=== PATIENT | female | born 1980 | race Caucasian/White ===

== ENCOUNTER 2018-02-02 13:13 | Outpatient (CLI) | payer MEDICAID, SELFPAY ==
--- NOTE | 2018-02-02 06:00 | DI.RAD_ITS ---
SYMPTOMS/DIAGNOSIS: LUMBAR RADICULOPATHY PAIN CLINIC LUMBAR SPINE: Fluoroscopy Time: 14.2 sec Images submitted from the Pain Clinic demonstrate needle positioning over the left paramedian position at the level of S1 with injection of a small quantity of contrast material in conjunction with a transforaminal epidural steroid injection carried out by Dr. Sue. Please see the procedure report for further information.
[2018-02-02 13:26] VITALS: BP 123/79; PULSE 100; RESP 16; TEMP 36.6; O2SAT 100
--- NOTE | 2018-02-02 14:04 | PDOC.PAIN ---
Pain Clinic Procedure Note Current Active Problems Problem Status Onset Left lumbar radiculitis Acute LUMBAR / SACRAL TRANSFORAMINAL INJECTION at the LEFT S1 KATRIN VILLATORO has been referred to the [facility] for a transforaminal nerve root block and steroid injection. COMMENTS: She received 8+ months relief from the last Left S1 TFESI in April 2017. Patient was interviewed and the medical record reviewed. There were no medical, pharmacologic, radiographic or other structural contraindications to attempting fluoroscopically guided transforaminal nerve root block and epidural steroid injection. Risks and expected side effects as well as potential benefit of the procedure were reviewed and voiced concerns addressed. The printed consent form was signed and witnessed. Standard time-out procedure was performed. Patient was placed in the prone position on the fluoroscopy table and automated blood pressure cuff and pulse oximeter applied. Fluoroscopy was utilized to identify the left at the [id number] foramen . A skin elvis was made for the needle insertion site. A Chlorhexadine prep was carried out, and sterile drapes were applied. Local anesthesia was achieved in the skin and subcutaneous tissues. A 22 gauge curved tip 5 spinal needle was then inserted, advanced with fluoroscopic guidance into the neural foramen, confirmed on the lateral view. After negative aspiration, 2 ml of Omnipaque 240 was injected confirming position in A/P and lateral views. This showed a good spread of dye transforaminally into the epidural space. There was no vascular update with contrast injection under continuous fluoroscopy and digital substraction. 15 mg of Dexamethasone was injected, followed by 0.5 ml of 1% Xylocaine flush for the nerve root block, as well. There was no unusual discomfort expressed.The needle was withdrawn. The patient tolerated the procedure well. A Band-Aid was applied. Vital signs were stable throughout the procedure and were as recorded in nursing records. If given, dosages of intravenous drugs for anxiolysis and analgesia were documented in nursing records. Follow up plans and appointments were discussed. Post procedure instruction was given as documented in nursing records and patient was discharged in the care of an identified rolloff driver. COMMENTS: If this procedure gives her relief, she can have this procedure completed up to 3 times per 12 months. Edmond Sue DO, MPH ABP[facility] - Subspecialty Board Certification in Pain Medicine CC: Zulma Dey
--- NOTE | 2018-02-02 14:07 | PDOC.PAIN_ITS ---
Pain Clinic Procedure Note Current Active Problems Problem Status Onset Left lumbar radiculitis Acute LUMBAR / SACRAL TRANSFORAMINAL INJECTION at the LEFT S1 KATRIN VILLATORO has been referred to the [facility] for a transforaminal nerve root block and steroid injection. COMMENTS: She received 8+ months relief from the last Left S1 TFESI in April 2017. Patient was interviewed and the medical record reviewed. There were no medical , pharmacologic, radiographic or other structural contraindications to attempting fluoroscopically guided transforaminal nerve root block and epidural steroid injection. Risks and expected side effects as well as potential benefit of the procedure were reviewed and voiced concerns addressed. The printed consent form was signed and witnessed. Standard time-out procedure was performed. Patient was placed in the prone position on the fluoroscopy table and automated blood pressure cuff and pulse oximeter applied. Fluoroscopy was utilized to identify the left at the [id number] foramen . A skin elvis was made for the needle insertion site. A Chlorhexadine prep was carried out, and sterile drapes were applied. Local anesthesia was achieved in the skin and subcutaneous tissues. A 22 gauge curved tip 5 spinal needle was then inserted , advanced with fluoroscopic guidance into the neural foramen, confirmed on the lateral view. After negative aspiration, 2 ml of Omnipaque 240 was injected confirming position in A/P and lateral views. This showed a good spread of dye transforaminally into the epidural space. There was no vascular update with contrast injection under continuous fluoroscopy and digital substraction. 15 mg of Dexamethasone was injected, followed by 0.5 ml of 1% Xylocaine flush for the nerve root block, as well. There was no unusual discomfort expressed.The needle was withdrawn. The patient tolerated the procedure well. A Band-Aid was applied. Vital signs were stable throughout the procedure and were as recorded in nursing records. If given, dosages of intravenous drugs for anxiolysis and analgesia were documented in nursing records. Follow up plans and appointments were discussed. Post procedure instruction was given as documented in nursing records and patient was discharged in the care of an identified driver starting gate. COMMENTS: If this procedure gives her relief, she can have this procedure completed up to 3 times per 12 months. Edmond Sue DO, MPH ABP[facility] - Subspecialty Board Certification in Pain Medicine CC: Zulma Dey
[2018-02-02] MEDS: Dexamethasone Sod. Phos./Pres-Free 10 MG/ML VIAL IJ (14:12)
[2018-02-02] MEDS: Omnipaque 240 MG/ML 50 ML BTL IJ (14:13)
[2018-02-02 14:16] VITALS: PULSE 96; RESP 13; O2SAT 98
== END 2018-02-02 13:33 ==
PROVIDERS: PCP Nurse Practitioner; Visit Provider Preventive Medicine Occupational Medicine
DX: M54.16 Radiculopathy, lumbar region (principal)
CPT/HCPCS: 64483; 72100; Q9967

== ENCOUNTER 2018-02-04 17:42 | Emergency (ER) | payer MEDICAID, SELFPAY ==
[2018-02-04 17:48] VITALS: BP 108/71; PULSE 95; RESP 16; TEMP 36.5; O2SAT 98
[2018-02-04] MEDS: Acetaminophen 500 MG TAB 1000 MG PO (18:43)
[2018-02-04] MEDS: Methocarbamol 500 MG TAB PO (18:43)
[2018-02-04] MEDS: Ketorolac 30 MG/ML VIAL IM (18:44)
[2018-02-04] MEDS: Lidocaine 5% Patch 1 PATCH TP (18:50)
--- NOTE | 2018-02-04 19:20 | NUR.NOTE ---
Nursing Note: pt in room, lying on side facing wall, resting comfortably in dark room with family member at bedside.
[2018-02-04] MEDS: HYDROmorphone 2 MG/ML VIAL 1 MG IM (20:14)
[2018-02-04 20:22] VITALS: PULSE 68; RESP 19; O2SAT 96
--- NOTE | 2018-02-04 20:37 | W.ED.GENAD ---
Discharge Plan Disposition Patient Disposition: HOME Condition: Good Discharge Details Chief Complaint: Nk/Back Pain Clinical Impression: Left lumbar radiculitis Primary Care Provider: Zulma Dey ED Provider: Panda Ordaz Home Meds and New Rx's Prescriptions: New diazepam [Valium] 5 mg tablet 5 mg PO BID Qty: 6 RF: 0 No Action methocarbamol 500 MG tablet See Label Instructions .ROUTE .COMPLEX PRNRF: 0 duloxetine [Cymbalta] 60 MG capsule,delayed release(DR/EC) 2 cap PO DAILY RF: 0 losartan 50 MG tablet 50 mg PO DAILY RF: 0 acetaminophen [Pain Reliever Extra Strength] 500 MG tablet 1,000 mg PO RF: 0 ibuprofen [Advil] 200 MG tablet 600 mg PO TID PRN PRNRF: 0 spironolactone 50 MG tablet 100 mg PO DAILY RF: 0 gabapentin 300 mg Capsule 900 mg PO TID RF: 0 glycopyrrolate 2 mg Tablet 2 mg PO DAILY RF: 0 eflornithine [Vaniqa] 13.9 % Cream 1 applic TOPICAL BID RF: 0 omeprazole 40 mg Capsule,Delayed Release(Dr/Ec) 40 mg PO DAILY RF: 0 lisdexamfetamine [Vyvanse] 70 mg Capsule 70 mg PO QAM RF: 0 aluminum chloride [Drysol] 20 % Solution 1 DAILY RF: 0 dextroamphetamine-amphetamine [Adderall] 20 mg Tablet 20 mg PO DAILY PRNRF: 0 Discharge Instructions Instructions: Back Pain (ED) Additional Instructions: Please continue to take your home medications. Please avoid any heavy lifting greater than 10 pounds. Please follow-up with your pain clinic as soon as possible for reassessment. If you notice any numbness or tingling in your groin, weakness in your legs, bowel or bladder incontinence, vomiting, or diarrhea please return immediately. Referrals: Zulma Dey [Primary Care Provider] - Discharge Data Discharge Date/Time-TO BE ENTERED AT DEPARTURE: 02/04/18 21:06 Medical Decision Making This is a 37-year-old female with a past medical history of chronic back pain who does see a pain clinic, she had injections on which was 2-3 days ago, since then she has had mild improvement of her pain but no complete improvement. She did take her home [place], Robax[place], however she called the on-call physician for the pain clinic and is unwilling to prescribe Dilaudid and Valium. She came here for further evaluation and pain control. She denies any new change or alteration in her chronic pain syndrome, just slight worsening of her normal pain. It is not changed in nature. She denies any saddle anesthesia. No red flags on history of IV drug use, recent trauma, or systemic symptoms of fever or chills. Physical exam demonstrates chronic tenderness on her lower spine, no neurologic deficits, no saddle anesthesia. Patient was initially given Lidoderm patch, she refused Decadron, she was given Toradol, acetaminophen, Robaxin, and Valium. She had minimal improvement with this. Patient then did request more pain medication. We did give intramuscular Dilaudid, and within 1 minute the patient stated that she is feeling much better and was ready to go home. I do feel that the patient certainly has chronic back pain issues, however I am concerned that there may be a component of opiate withdrawal, secondary to chronic previous use of opiates. Thankfully with no signs of concerning physical exam findings or concerning historical components I do feel that she can be safely discharged home with close follow-up. We discussed red flags for which to return, the importance of avoiding opiates, as well as the importance of close follow-up with a pain clinic. I have extensively reviewed the treatment plan and discharge instructions with the patient and their family. I have addressed all patient concerns at this time. The patient and family was made aware of what symptoms to monitor for that would warrant a return to the emergency department. Discussed the plan with the patient and family, they demonstrate verbal understanding and agreement with our assessment and plan at this time. HPI General Date/Time Provider Initiated Documentation: 02/04/18 18:17. HPI Narrative: This is a 37-year-old female with a past medical history of a laminectomy in 2011 on L3-L5 who used to be on Dilaudid, Valium, Robaxin, but had recently stopped these and has been getting injections at the local pain clinic. Most recent injection was on . She had some improvement of her chronic back pain with that, however she states that she is still having some moderate to severe left buttock pain. She was given steroids, injections, and Tylenol Motrin at home. She states that there is no new change in her symptoms compared to her chronic back pain. She denies any bowel or bladder incontinence, she denies any saddle anesthesia. She denies any recent falls, traumas or systemic symptoms of fevers or chills. She denies any IV or illicit drug use. She states that she did call the on-call physician for the pain clinic he was not comfortable giving her oral Dilaudid and Valium for home use for her pain, and so she came to the ER for further evaluation. She denies any relieving factors. Symptoms are made worse with movement. She denies any other associated symptoms. She denies any IV or illicit drug use. She denies any pertinent family history. Related Data Home Medications Medication Instructions Recorded Confirmed duloxetine [Cymbalta] 2 cap PO DAILY 03/19/15 02/04/18 spironolactone 100 mg PO DAILY 04/23/17 02/04/18 acetaminophen [Pain Reliever] 1,000 mg PO 04/26/17 ibuprofen [Advil] 600 mg PO TID PRN PRN 04/26/17 02/04/18 losartan 50 mg PO DAILY 04/26/17 02/04/18 methocarbamol See Label Instructions .ROUTE 05/19/17 02/04/18 .COMPLEX PRN aluminum chloride [Drysol] 1 DAILY 02/02/18 dextroamphetamine-amphetamine 20 mg PO DAILY PRN 02/02/18 02/04/18 [Adderall] eflornithine [Vaniqa] 1 applic TOPICAL BID 02/02/18 02/04/18 gabapentin 900 mg PO TID 02/02/18 02/04/18 glycopyrrolate 2 mg PO DAILY 02/02/18 02/04/18 lisdexamfetamine [Vyvanse] 70 mg PO QAM 02/02/18 02/04/18 omeprazole 40 mg PO DAILY 02/02/18 02/04/18 diazepam [Valium] 5 mg PO BID #6 tab 02/04/18 Previous Rx's Medication Instructions Recorded diazepam [Valium] 5 mg PO BID #6 tab 02/04/18 Allergies Allergy/AdvReac Type Severity Reaction Status Date / Time codeine AdvReac Mild Hyper Unverified 02/04/18 17:52 General Stated Complaint: Nk/Back Pain CARMEL: 3 Review of Systems Review of Systems All systems reviewed & are unremarkable except as noted in HPI and below PFSH Medical History Back pain Depression Fatigue HTN (hypertension) Hirsutism Lactose intolerance Lumbar radiculopathy Malaise Migraines Obesity Sleep apnea Snoring Social History Smoking/Tobacco Use Status: Current-Occasional Surgical History discectomy laminectomy Exam Narrative Exam Narrative: 1.Const: Well-nourished, Well-developed, appearing stated age 2.Eyes: PERRL, no conjunctival injection, and symmetrical lids. 3.ENT: Atraumatic external nose and ears. Moist MM. Neck: Symmetric, trachea midline, No thyromegaly. 4.CVS: +S1/S2, No murmurs or gallops. Peripheral pulses 2+ and equal in all extremities. Brisk capillary refill in all extremities. 5.RESP: Unlabored respiratory effort. Clear to auscultation bilaterally. No wheezes rales or rhonchi 6.GI: Soft, Nontender/Nondistended, No hepatosplenomegaly. No guarding or rebound. 7.MSK: Normocephalic/Atraumatic, Extremities w/o deformity or ttp No cyanosis or clubbing, Normal movement of all extremities 8.Skin: Warm, Dry. No rashes or lesions. 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 Sensation grossly intact, no focal neurologic deficits. No midline tenderness to palpation over the C/T spine. Slightly limited ROM in flexion, extension, side bend, and rotation secondary to pain. Old scar noted over the lumbar vertebra, mild tenderness around this area. Patient has +5 out of 5 strength in the lower extremities in dorsiflexion and plantarflexion, knee flexion and extension, hip flexion and extension. There is +2 over 2 dorsalis pedis pulses bilaterally. There is normal sensation to the skin with light touch at the foot, knee, and hip. Normal saddle sensation. Good sensation over the deep sural nerve area bilaterally. Rectal exam deferred. Reflexes are +2 over 4 in the patellar reflex bilaterally. +5 out of 5 strength in the medial, ulnar, radial nerve distribution bilaterally in the hands as well as intact light touch sensation to these dermatomes on the hands. It is worsened with straight leg raise on the left. No other abnormalities. 10.Psych: (AAO) x3. Appropriate mood and affect Course Vital Signs Temperature 36.5 C 02/04/18 17:48 Pulse 95 H 02/04/18 17:48 Respiratory Rate 16 02/04/18 17:48 Blood Pressure 108/71 02/04/18 17:48 Pulse Oximetry 98 02/04/18 17:48 Temperature 36.5 C 02/04/18 17:48 Temperature Source Skin 02/04/18 17:48 Pulse 68 02/04/18 20:22 Respiratory Rate 19 02/04/18 20:22 Respiratory Effort Non-Labored 02/04/18 17:51 Blood Pressure 108/71 02/04/18 17:48 Pulse Oximetry 96 02/04/18 20:22 Oxygen Delivery Method Room Air 02/04/18 20:22 Oxygen Flow Rate 0 02/04/18 20:22 Pain Level 7 02/04/18 18:45
[2018-02-04 21:04] VITALS: BP 124/87; PULSE 76; RESP 16; O2SAT 97
== END 2018-02-04 21:06 | disposition home or self-care (01) ==
PROVIDERS: Emergency Provider Student in an Organized Health Care Education/Training Program; PCP Nurse Practitioner
DX: M54.16 Radiculopathy, lumbar region (principal)
CPT/HCPCS: 96372; 99284; J1885

== ENCOUNTER 2018-02-06 10:08 | Emergency (ER) | payer MEDICAID, SELFPAY ==
[2018-02-06 10:12] VITALS: BP 132/78; PULSE 78; RESP 20; TEMP 37.1; O2SAT 97
[2018-02-06] MEDS: HYDROmorphone 2 MG/ML VIAL 1 MG IM (10:58)
[2018-02-06 11:30] VITALS: BP 115/80; PULSE 80; RESP 18; TEMP 36.7; O2SAT 99
--- NOTE | 2018-02-06 11:36 | ED.GENADUL_ITS ---
Discharge Plan Disposition Patient Disposition: HOME Condition: Stable Discharge Details Chief Complaint: Nk/Back Pain Clinical Impression: Acute exacerbation of chronic low back pain, Left lumbar radiculitis Primary Care Provider: Zulma Dey ED Provider: Orville Carver Home Meds and New Rx's Prescriptions: No Action prednisone 10 mg tablet 10 mg PO DIRECTED 5 Days Qty: 20 RF: 0 methocarbamol 500 MG tablet See Label Instructions .ROUTE .COMPLEX PRNRF: 0 duloxetine [Cymbalta] 60 MG capsule,delayed release(DR/EC) 2 cap PO DAILY RF: 0 losartan 50 MG tablet 50 mg PO DAILY RF: 0 acetaminophen [Pain Reliever Extra Strength] 500 MG tablet 1,000 mg PO RF: 0 ibuprofen [Advil] 200 MG tablet 600 mg PO TID PRN PRNRF: 0 spironolactone 50 MG tablet 100 mg PO DAILY RF: 0 gabapentin 300 mg Capsule 900 mg PO TID RF: 0 glycopyrrolate 2 mg Tablet 2 mg PO DAILY RF: 0 eflornithine [Vaniqa] 13.9 % Cream 1 applic TOPICAL BID RF: 0 omeprazole 40 mg Capsule,Delayed Release(Dr/Ec) 40 mg PO DAILY RF: 0 lisdexamfetamine [Vyvanse] 70 mg Capsule 70 mg PO QAM RF: 0 aluminum chloride [Drysol] 20 % Solution 1 DAILY RF: 0 dextroamphetamine-amphetamine [Adderall] 20 mg Tablet 20 mg PO DAILY PRNRF: 0 diazepam [Valium] 5 mg tablet 5 mg PO BID Qty: 6 RF: 0 Discharge Instructions Instructions: Chronic Back Pain (ED) Additional Instructions: Please keep your appointment with pain management clinic for today at noon and if you begin developing a fever with your back pain, saddle anesthesia, or changes in bowel or bladder function return immediately to the emergency department for reassessment of emergency back pain. Otherwise take your prescribed medication as directed by primary care provider. Referrals: Vesta Marrero [NURSE PRACTITIONER] - (Follow-up with your primary care provider for reassessment or chronic management of your back pain. ) Discharge Data Discharge Date/Time-TO BE ENTERED AT DEPARTURE: 02/06/18 11:29 Medical Decision Making Patient presenting to the emergency department for chief complaint of back pain. Patient states that in 2011 she had back surgery and she continues to have back pain after her surgical procedure with acute flareups. Patient started having a flareup approximately a week ago and was seen by primary care last week. She states that they wrote for her for hydrocodone which has not been effective, seen the pain clinic the next day with injection for back pain, then presented to the emergency department 2 days ago with minimal relief until she received Dilaudid. Patient states in the past she has been given p.o. Dilaudid for these acute flareups. Patient denies any fever chills, IV drug use , saddle anesthesia, inability to move lower extremities, or changes in bowel or bladder function. Physical exam shows left lower lumbar diffuse tenderness and sciatic notch tenderness without any other acute findings. Physical exam is otherwise unremarkable. When discussing with patient that there is been 4 visits in less than 1 week and scripts for both opiates and benzodiazepine patient became very defensive. Informed patient that I was willing to treat her acute back pain with a single IM injection of Dilaudid since that helped previously but that for any further pain complaints that she would need to follow-up with primary care. Patient continued to be defensive and stated that I was accusing her of being a drug addict. I attempted to inform patient of concerning pattern that could lead potentially to addiction and that I felt that her pain needed to be managed by her primary care provider given chronicity. Informed patient pending IM injection that I would contact her primary care provider for any further recommendations. Spoke with Vesta Sarabia whom patient states that she has seen in the past. She stated that she is aware of the patient but has not recently prescribed her any Dilaudid per her recollection and would not recommend any further opiate prescriptions. Informed patient of conversation with primary care and that primary care recommended that she follow-up with their office. Patient then informed me that she did have a follow-up appoint with pain clinic at noon. Patient was very upset about the entire interaction even when I attempted to educate patient on emergency signs of back pain which I do not see any signs of cauda equina, epidural abscess, or severe radiculopathy that needs MRI imaging or emergent follow-up. Patient was also informed to contact her previous neurosurgeon which she states she did attempt to last week and they were not willing to do anything for her patient discharged with family member to go straight to pain clinic for appointment. Patient did state some relief of symptoms after IM hydromorphone injection. Medical Records Medical records reviewed: Yes I reviewed the patient's medical records. HPI General Mode of arrival: ambulatory . Date/Time Provider Initiated Documentation: 02/06/18 10:19 . Limitations to Documentation: no limitations . Information obtained by: patient, RN notes reviewed and old records reviewed . History of Present Illness 37 year old F presents to the emergency department with the chief complaint of Back pain, with intensity rated at 9. Quality is described as sharp and constant, and is localized to the back. Patient distal (left leg). Patient started experiencing this week(s) (1) and it has been constant. Medication improves symptom(s), (Dilaudid injection 2 days ago provided mild brief improvement) Patient did receive the following treatments prior to arrival, none Related Data Home Medications Medication Instructions Recorded Confirmed duloxetine [Cymbalta] 2 cap PO DAILY 03/19/15 02/06/18 spironolactone 100 mg PO DAILY 04/23/17 02/06/18 acetaminophen [Pain Reliever] 1,000 mg PO 04/26/17 02/06/18 ibuprofen [Advil] 600 mg PO TID PRN PRN 04/26/17 02/06/18 losartan 50 mg PO DAILY 04/26/17 02/06/18 methocarbamol See Label Instructions .ROUTE 05/19/17 02/06/18 .COMPLEX PRN aluminum chloride [Drysol] 1 DAILY 02/02/18 02/06/18 dextroamphetamine-amphetamine 20 mg PO DAILY PRN 02/02/18 02/06/18 [Adderall] eflornithine [Vaniqa] 1 applic TOPICAL BID 02/02/18 02/06/18 gabapentin 900 mg PO TID 02/02/18 02/06/18 glycopyrrolate 2 mg PO DAILY 02/02/18 02/06/18 lisdexamfetamine [Vyvanse] 70 mg PO QAM 02/02/18 02/06/18 omeprazole 40 mg PO DAILY 02/02/18 02/06/18 diazepam [Valium] 5 mg PO BID #6 tab 02/04/18 02/06/18 prednisone 10 mg tablet 10 mg PO DIRECTED 5 Days #20 tab 02/06/18 02/06/18 Previous Rx's Medication Instructions Recorded diazepam [Valium] 5 mg PO BID #6 tab 02/04/18 prednisone 10 mg tablet 10 mg PO DIRECTED 5 Days #20 tab 02/06/18 Allergies Allergy/AdvReac Type Severity Reaction Status Date / Time codeine AdvReac Mild Hyper Unverified 02/06/18 11:55 General Stated Complaint: Nk/Back Pain CARMEL: 3 Review of Systems Constitutional Denies chills, Denies fever(s), Denies frequent falls and Denies night sweats Cardiovascular Denies chest pain and Denies dyspnea Respiratory Denies dyspnea Gastrointestinal Denies change in bowel habits Genitourinary Denies urinary frequency, Denies difficulty voiding and Denies urinary incontinence Musculoskeletal Reports as per HPI, Reports back pain, Denies numbness and Reports radiating pain into limb Neurologic Denies frequent falls and Denies numbness PFSH Medical History Back pain Depression Fatigue HTN (hypertension) Hirsutism Lactose intolerance Lumbar radiculopathy Malaise Migraines Obesity Sleep apnea Snoring Social History Smoking/Tobacco Use Status: Current-Occasional Surgical History discectomy laminectomy Exam Const General: cooperative, acute distress severe; not respiratory, anxious and not ill appearing Nutritional Appearance: overweight Orientation: alert, awake and oriented x3 Limitations: mental status not altered Resp Effort & Inspection: normal respiratory effort and able to speak in complete sentences Auscultation: clear to auscultation bilaterally Cardio Rate: regular rate Rhythm: regular rhythm Heart Sounds: S1 normal and S2 normal Back/Spine/Pelvis Thoracic/Lumbar Spine: pain with thoraco-lumbar ROM, paraspinal tenderness, No thoraco-lumbar spasm, No thoracic spinal tenderness, lumbar spinal tenderness ( Diffuse nonfocal) and other (Left sciatic notch tenderness, tenderness to buttock) Extrem General: full ROM Course Vital Signs Temperature 37.1 C 02/06/18 10:12 Pulse 78 02/06/18 10:12 Respiratory Rate 20 02/06/18 10:12 Blood Pressure 132/78 02/06/18 10:12 Pulse Oximetry 97 02/06/18 10:12 Temperature 37.1 C 02/06/18 10:12 Temperature Source Temporal Artery Scan 02/06/18 10:12 Pulse 78 02/06/18 10:12 Respiratory Rate 20 10/22/18 10:12 Respiratory Effort 02/06/18 10:17 Blood Pressure 132/78 02/06/18 10:12 Blood Pressure Position Sitting 02/06/18 10:12 Pulse Oximetry 97 02/06/18 10:12 Oxygen Delivery Method Room Air 02/06/18 10:12 Oxygen Flow Rate 0 02/06/18 10:12 Pain Level 9 02/06/18 10:12
== END 2018-02-06 11:29 | disposition home or self-care (01) ==
PROVIDERS: Emergency Provider Nurse Practitioner Family; PCP Nurse Practitioner
DX: M54.5 Low back pain (principal); G89.29 Other chronic pain; M54.16 Radiculopathy, lumbar region; I10 Essential (primary) hypertension
CPT/HCPCS: 96372; 99284; 99283

== ENCOUNTER 2018-02-23 15:04 | Outpatient (CLI) | payer MEDICAID, SELFPAY ==
--- NOTE | 2018-02-23 11:00 | DI.MRI_ITS ---
SYMPTOMS/DIAGNOSIS: ACUTE LOW BACK PAIN, M54.6, BACK PAIN WITH RADICULOPATHY, M54.16, CHRONIC INCREASING LOW BACK PAIN, LEFT LEG SYMPTOMS, DROP FOOT ON LEFT MRI OF THE LUMBAR SPINE: Routine noncontrast examination. Comparison is 12/15/15. The conus medullaris has a normal appearance and location. At L5-S1, there is a moderate-sized left paracentral disc herniation with extrusion posterior to the S1 vertebral body. It compresses the left S1 nerve root. No central spinal canal stenosis is seen. There is mild narrowing of the left neural foramen with mild compression of the exiting nerve root. The right neural foramen is patent. There is disc desiccation present. Degenerative changes at the facets are seen. At L4-L5, there are degenerative changes at the facet joints. There is a moderately large left paracentral disc herniation. It compresses the left L5 nerve root. There is mild narrowing of the central spinal canal noted. There is mild left neural foraminal narrowing. No right neural foraminal stenosis is seen. At L3-L4, there is disc desiccation. There is a diffuse disc bulge. No significant central spinal canal stenosis is seen. There is a small central disc herniation present. There does appear to be compression of the left L4 nerve root. There is narrowing of the neural foramen bilaterally. At L2-L3 and L1-L2, no focal disc herniation, central spinal canal or neural foraminal stenosis is seen. Apart from the degenerative signal changes, there is normal marrow signal. IMPRESSION: 1. Left paracentral disc herniation at L5-S1 compressing the left S1 nerve root. 2. L4-5 left paracentral disc herniation compressing the left L5 nerve root. 3. L3-4 disc herniation with compression of the left L4 nerve root. 4. Multilevel degenerative changes in the lumbar spine resulting in central spinal canal and neural foraminal stenosis as described above.
--- NOTE | 2018-02-23 17:42 | DI.VRAD_ITS ---
EXAM: MR Lumbar Spine Without Intravenous Contrast. EXAM DATE/TIME: 02/23/2018 11:00 AM CLINICAL HISTORY: 37 years old, female; Pain; Other: Lower back pain acute with radioculopathy TECHNIQUE: Multiplanar magnetic resonance images of the lumbar spine without intravenous contrast. . Exam is focused on the lumbar spine. COMPARISON: MRI - LUMBAR SPINE W/WO CONT 12/15/2015 4:47 PM FINDINGS: Vertebrae: No spondylolisthesis. No fracture. Marrow: No abnormal bone marrow signal. Spinal cord: Normal signal. No cord compression. Discs/Spinal canal/Neural foramina: L1-L2: Mild disc bulge. Bilateral facet hypertrophy. No spinal canal stenosis. No neural foramina narrowing. L2-L3: Disc bulge. Bilateral facet hypertrophy. No spinal canal stenosis. No neural foramina narrowing. L3-L4: Disc bulge. There is superimposed central disc protrusion. Moderate spinal canal stenosis. Bilateral facet hypertrophy. Moderate bilateral neural foramina narrowing. The disc is abutting the descending left L4 nerve. L4-L5: Central, left paracentral and left neuroforaminal disc protrusion. Bilateral facet hypertrophy. Moderate to severe spinal canal stenosis. Moderate bilateral neural foramina narrowing. The disc is abutting the descending L5 left nerve. L5-S1: Disc bulge. Bilateral facet hypertrophy. No spinal canal stenosis. Moderate bilateral neural foramina narrowing. Soft tissues: Unremarkable. IMPRESSION: Multilevel degenerative disc disease the neural foramina narrowing. Moderate bilateral neural foramina narrowing at L3-L4, L4-L5 and L5-S1. The disc material is abutting the left L4 descending nerve at L3-L4 and left L5 nerve at L4-L5. Moderate spinal canal stenosis at L3-L4 and moderate to severe at L4-L5. Dictated and Authenticated by: Cristobal Baum MD. Ordering:LAUREN BANGURA MD
== END 2018-02-23 15:24 ==
PROVIDERS: PCP Nurse Practitioner; Visit Provider Nurse Practitioner Family
DX: M54.16 Radiculopathy, lumbar region (principal); M21.372 Foot drop, left foot; M51.17 Intervertebral disc disorders with radiculopathy, lumbosacral region; M48.07 Spinal stenosis, lumbosacral region
CPT/HCPCS: 72148

== ENCOUNTER 2018-05-16 05:09 | Emergency (ER) | payer MEDICAID, SELFPAY ==
[2018-05-16 05:12] VITALS: BP 114/65; PULSE 85; RESP 20; TEMP 36.6; O2SAT 100
--- NOTE | 2018-05-16 05:23 | DI.RAD_ITS ---
SYMPTOM/DIAGNOSIS: LATERAL ANKLE PAIN AFTER INVERSION LEFT ANKLE: There is soft tissue swelling around the lateral malleolus. No fracture or ankle mortise widening is seen. There is spurring at the Achilles insertion on the calcaneus. IMPRESSION: Lateral soft tissue swelling.
--- NOTE | 2018-05-16 05:24 | W.ED.GENAD ---
Discharge Plan Disposition Patient Disposition: HOME Condition: Good Discharge Details Chief Complaint: Orthopedic Clinical Impression: Left ankle sprain Primary Care Provider: Zulma Dey ED Provider: Panda Ordaz Home Meds and New Rx's Prescriptions: No Action duloxetine [Cymbalta] 60 MG capsule,delayed release(DR/EC) 2 cap PO DAILY RF: 0 losartan 50 MG tablet 50 mg PO DAILY RF: 0 acetaminophen [Pain Reliever Extra Strength] 500 MG tablet 1,000 mg PO PRN PRNRF: 0 ibuprofen [Advil] 200 MG tablet 600 mg PO TID PRN PRNRF: 0 spironolactone 50 MG tablet 100 mg PO DAILY RF: 0 gabapentin 300 mg Capsule 900 mg PO TID PRNRF: 0 glycopyrrolate 2 mg Tablet 2 mg PO DAILY RF: 0 Vaniqa 13.9 % Cream 1 applic TOPICAL BID PRNRF: 0 omeprazole 40 mg Capsule,Delayed Release(Dr/Ec) 40 mg PO DAILY RF: 0 Vyvanse 70 mg Capsule 70 mg PO QAM RF: 0 aluminum chloride [Drysol] 20 % Solution 1 DAILY RF: 0 dextroamphetamine-amphetamine [Adderall] 20 mg Tablet 20 mg PO DAILY PRNRF: 0 Nexplanon 68 mg Implant 1 implant SUBDERMAL ONCE RF: 0 Discharge Instructions Instructions: Ankle Sprain (ED) Additional Instructions: Please take Tylenol, Motrin, and use ice every 15 minutes for control of your pain. Please use the crutches and the ankle brace as directed. Please follow-up with your primary care provider for reassessment of your ankle. If you notice any worsening of your symptoms, or any new symptoms such as vomiting, diarrhea, fever, chills, shortness of breath, chest pain, numbness, weakness, or fainting , please return immediately to the emergency department for reevaluation. Please follow up with your primary care provider as soon as possible for reassessment and reevaluation. As always, it was a pleasure participating in your medical care today. Stand Alone Forms: Work Release Referrals: Zulma Dey [Primary Care Provider] - Medical Decision Making This is a pleasant 37-year-old female who presents for evaluation of left ankle pain. It occurred roughly 30 minutes prior to arrival when she was walking, her left foot, on a slipper, and she had notable inversion of the foot and applied significant weight while inverted. She has had multiple ankle sprains in the past. She has chronic drop foot on the left secondary to chronic history of back pain. Physical exam demonstrates a normal neurovascular exam, no deformity, minimal swelling in the left lateral ankle. She does have notable pain with every step. We will get an x-ray to rule out any acute fracture. We will give Tylenol Motrin. Feel the patient will most likely require splint very least. 6 AM X-ray results have returned and per virtual radiology there is evidence of lateral soft tissue swelling which may reflect soft tissue injury but no evidence of fracture. The have given the patient crutches, and a lace up ankle brace. Patient's pain is controlled with Tylenol Motrin. No evidence of fracture, I feel the likelihood of a sprain is high, most likely the anterior talofibular ligament. We discussed the importance of continued NSAIDs, crutches and brace, ice, and close follow-up. I have extensively reviewed the treatment plan and discharge instructions with the patient. I have addressed all patient concerns at this time. The patient was made aware of what symptoms to monitor for that would warrant a return to the emergency department. Discussed the plan with the patient, they demonstrate verbal understanding and agreement with our assessment and plan at this time. FINDINGS: Bones/joints: Normal. Soft tissues: Lateral soft tissue swelling may reflect soft tissue injury. IMPRESSION: Lateral soft tissue swelling may reflect soft tissue injury. Dictated and Authenticated by: Gautam Pardo MD. Ordering:KRYSTAL Mosqueda MD HPI General Date/Time Provider Initiated Documentation: 05/16/18 05:17. HPI Narrative: This is a 37-year-old female with past medical history of chronic back pain, laminectomy, hypertension, chronic left foot, presents today for evaluation of left ankle sprain/pain. Patient states that roughly 30 minutes prior to arrival she was at home when her foot did not completely clear her slipper, had notable inversion, and subsequent pain. She denies hearing any pop. She is unable to ambulate on it. She has not taken any Tylenol or Motrin for pain. She denies any numbness or tingling. Pain is worse with movement and palpation. Improved by nothing. She denies any other complaints at this time. She does admit to multiple sprains of the ankle in the past. Related Data Home Medications Medication Instructions Recorded Confirmed duloxetine [Cymbalta] 2 cap PO DAILY 03/19/15 05/16/18 spironolactone 100 mg PO DAILY 04/23/17 05/16/18 acetaminophen [Pain Reliever] 1,000 mg PO PRN PRN 04/26/17 05/16/18 ibuprofen [Advil] 600 mg PO TID PRN PRN 04/26/17 05/16/18 losartan 50 mg PO DAILY 04/26/17 05/16/18 aluminum chloride [Drysol] 1 DAILY 02/02/18 02/06/18 dextroamphetamine-amphetamine 20 mg PO DAILY PRN 02/02/18 05/16/18 [Adderall] eflornithine [Vaniqa] 1 applic TOPICAL BID PRN 02/02/18 05/16/18 gabapentin 900 mg PO TID PRN 02/02/18 05/16/18 glycopyrrolate 2 mg PO DAILY 02/02/18 05/16/18 lisdexamfetamine [Vyvanse] 70 mg PO QAM 02/02/18 05/16/18 omeprazole 40 mg PO DAILY 02/02/18 05/16/18 etonogestrel [Nexplanon] 1 implant SUBDERMAL ONCE 05/16/18 05/16/18 Allergies Allergy/AdvReac Type Severity Reaction Status Date / Time codeine AdvReac Mild Hyper Unverified 05/16/18 05:19 General Stated Complaint: Orthopedic CARMEL: 4 Review of Systems Review of Systems All systems reviewed & are unremarkable except as noted in HPI and below PFSH Social History Smoking/Tobacco Use Status: Current-Occasional Exam Narrative Exam Narrative: 1.Const: Well-nourished, Well-developed, appearing stated age 2.Eyes: PERRL, no conjunctival injection, and symmetrical lids. 3.ENT: Atraumatic external nose and ears. Moist MM. Neck: Symmetric, trachea midline, No thyromegaly. 4.CVS: +S1/S2, No murmurs or gallops. Peripheral pulses 2+ and equal in all extremities. Brisk capillary refill in all extremities. 5.RESP: Unlabored respiratory effort. Clear to auscultation bilaterally. No wheezes rales or rhonchi 6.GI: Soft, Nontender/Nondistended, No hepatosplenomegaly. No guarding or rebound. 7.MSK: Normocephalic, Extremities w/o deformity. No cyanosis or clubbing, right foot: Notable tenderness on the lateral ankle with mild tenderness on the dorsal surface of the foot, minimal swelling on the lateral ankle. Normal dorsiflexion, but reduced plantarflexion secondary to pain. Pain with passive eversion and inversion of the left ankle. Sensation is intact throughout, capillary refill is brisk. Dorsalis pedis pulse +2 bilaterally. 8.Skin: Warm, Dry. No rashes or lesions. 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 Sensation grossly intact, no focal neurologic deficits. 10.Psych: (AAO) x3. Appropriate mood and affect Course Vital Signs Temperature 36.6 C 05/16/18 05:12 Pulse 85 05/16/18 05:12 Respiratory Rate 05/16/18 05:12 Blood Pressure 114/65 05/16/18 05:12 Pulse Oximetry 100 05/16/18 05:12 Temperature 36.6 C 05/16/18 05:12 Temperature Source Skin 05/16/18 05:12 Pulse 85 05/16/18 05:12 Respiratory Rate 05/16/18 05:12 Blood Pressure 114/65 05/16/18 05:12 Pulse Oximetry 100 05/16/18 05:12 Oxygen Delivery Method Room Air 05/16/18 05:12 Oxygen Flow Rate 0 05/16/18 05:12 Pain Level 9 05/16/18 05:12
[2018-05-16] MEDS: Acetaminophen 500 MG TAB 1000 MG PO (05:29)
[2018-05-16] MEDS: Ibuprofen 800 MG TAB PO (05:29)
--- NOTE | 2018-05-16 05:53 | DI.VRAD_ITS ---
EXAM: XR Left Ankle Complete, 3 or more Views EXAM DATE/TIME: 05/16/2018 5:24 AM CLINICAL HISTORY: 37 years old, female; Pain; Ankle; Left; Patient HX: Tripped over a slipper, pain in lateral aspect of ankle TECHNIQUE: XR Left ankle 3 or more views. COMPARISON: No relevant prior studies available. FINDINGS: Bones/joints: Normal. Soft tissues: Lateral soft tissue swelling may reflect soft tissue injury. IMPRESSION: Lateral soft tissue swelling may reflect soft tissue injury. Dictated and Authenticated by: Gautam Pardo MD. Ordering:KRYSTAL Mosqueda MD
== END 2018-05-16 06:19 | disposition home or self-care (01) ==
PROVIDERS: Emergency Provider Student in an Organized Health Care Education/Training Program; PCP Nurse Practitioner
DX: S93.402A Sprain of unspecified ligament of left ankle, initial encounter (principal); W18.41XA Slipping, tripping and stumbling without falling due to stepping on object, initial encounter
CPT/HCPCS: 29515; 99283; 73610; 99282; E0114; L1902

== ENCOUNTER 2018-06-22 00:34 | Outpatient (CLI) | payer MEDICAID, SELFPAY ==
--- NOTE | 2018-06-22 11:48 | DI.MRI_ITS ---
SYMPTOMS/DIAGNOSIS: LUMBAR BACK PAIN WITH RADICULOPATHY, M54.16 MRI OF THE LUMBAR SPINE: Routine examination. Comparison is 02/23/18. The conus medullaris has a normal appearance and location. There are again seen post surgical changes of a laminectomy at L 4. At L 5 - S 1 there is disc desiccation. There is a left lateral disc herniation which appears to project into the neural foramen causing mild to moderate left neural foraminal stenosis. It does appear to impinge upon the left S 1 nerve root. Degenerative changes of the facets are present. No significant central spinal canal stenosis is present. At L 4 - 5 there is disc desiccation. There is a left paracentral disc herniation with extrusion posterior to the L 5 vertebral body. It causes compression of the left L 5 nerve root. There is also moderate narrowing of the central spinal canal. There is narrowing of the neural foramen bilaterally left greater than right. At L 3 - 4 there is a large disc herniation with extrusion posterior to the L 4 vertebral body. It does appear to compress both the right and left L 4 nerve roots. Mild narrowing of the central spinal canal is noted. Degenerative changes of the facets are seen. There is mild narrowing of the left neural foramen. At L 2 - 3 and L 1 - 2 there is normal disc signal. No focal disc herniation, central spinal canal or neural foraminal stenosis is present. The marrow signal is within normal limits. IMPRESSION: 1. Left lateral disc herniation at L 5 - S 1 causing left neural foraminal stenosis and compression of the left S 1 nerve root. 2. Left paracentral disc herniation at L 4 - 5 with extrusion and causing compression of the left L 5 nerve root. 3. Central disc herniation at L 3 - 4 which appears to compress both the right and left L 4 nerve roots.
== END 2018-06-22 00:54 ==
PROVIDERS: PCP Nurse Practitioner; Visit Provider Nurse Practitioner Family
DX: M54.16 Radiculopathy, lumbar region (principal); M51.17 Intervertebral disc disorders with radiculopathy, lumbosacral region; M51.16 Intervertebral disc disorders with radiculopathy, lumbar region
CPT/HCPCS: 72148

== ENCOUNTER 2018-07-09 12:10 | Emergency (ER) | payer MEDICAID, SELFPAY ==
[2018-07-09 12:15] VITALS: BP 161/115; PULSE 82; RESP 16; TEMP 37; O2SAT 98
--- NOTE | 2018-07-09 12:35 | ED.GENADUL_ITS ---
Discharge Plan Disposition Patient Disposition: HOME Condition: Improving Discharge Details Chief Complaint: Nk/Back Pain Clinical Impression: Acute exacerbation of chronic low back pain, Back spasm, Sciatica Primary Care Provider: Vesta Marrero ED Provider: Ml Jenkins Home Meds and New Rx's Prescriptions: New prednisone 20 mg tablet See Rx Instructions .ROUTE .COMPLEX Qty: 12 RF: 0 diazepam [Valium] 5 mg tablet 5 mg PO TID PRN (Reason: muscle spasm) Qty: 7 RF: 0 naproxen 250 mg tablet 250 mg PO BID PRN (Reason: pain) Qty: 20 RF: 0 Continued duloxetine [Cymbalta] 60 MG capsule,delayed release(DR/EC) 2 cap PO DAILY RF: 0 losartan 50 MG tablet 50 mg PO DAILY RF: 0 acetaminophen [Pain Reliever Extra Strength] 500 MG tablet 1,000 mg PO PRN PRNRF: 0 spironolactone 50 MG tablet 100 mg PO DAILY RF: 0 gabapentin 300 mg Capsule 900 mg PO TID PRNRF: 0 glycopyrrolate 2 mg Tablet 2 mg PO DAILY RF: 0 Vaniqa 13.9 % Cream 1 applic TOPICAL BID PRNRF: 0 Vyvanse 70 mg Capsule 70 mg PO QAM RF: 0 aluminum chloride [Drysol] 20 % Solution 1 DAILY RF: 0 dextroamphetamine-amphetamine [Adderall] 20 mg Tablet 20 mg PO DAILY PRNRF: 0 Nexplanon 68 mg Implant 1 implant SUBDERMAL ONCE RF: 0 Discontinued ibuprofen [Advil] 200 MG tablet 600 mg PO TID PRN PRNRF: 0 methocarbamol 500 mg Tablet 500 mg PO HS PRN PRNRF: 0 Discharge Instructions Instructions: Sciatica (ED), Low Back Strain (ED), Muscle Spasm (ED) Additional Instructions: Alternate ice and heat to the affected area several times daily for 20 minutes at a time. Your primary care doctor and neurosurgeon tomorrow to schedule follow-up appointment for reevaluation. Take the steroids until finished. Take the anti-inflammatories and muscle relaxers as needed and directed for pain. Return immediately to the emergency department with any worsening or new concerning symptoms. Stand Alone Forms: Work Release Discharge Data Discharge Physician: Ml Jenkins Medical Decision Making Patient is a 37-year-old female with a history of chronic back pain, back spasms, lumbar disc herniation as well as a history of lumbar laminectomy in March 2018 who presents with left buttock and leg spasms for the past month, worse this morning. Denies new injury. No cauda equina symptoms. Patient drove herself to the ER but required assistance out of the car. Blood pressure hypertensive, remainder vitals within normal limits. No focal deficits. Neurovascularly intact. She has a TENS unit in place to her left buttock. No evidence of trauma or infection to buttock or thigh. Patient had an MRI done earlier this month which she states she reviewed with her neurosurgeon and was told there was no acute significant change. As patient denies any new injury, no focal deficits, I do not see an indication for any additional imaging at this time. Discussed with patient that with her history of chronic back pain, we likely will not completely resolve her pain but may be able to give her some relief. She has a Nexplanon and is declining test. Will give a Toradol injection, and a p.o. dose of Valium, oxycodone and prednisone. Patient has a ride home. 1350 --patient feels much better. She feels good to go home. Patient able to ambulate around the ED. She has a ride home with her parents. Patient instructed to call her primary care doctor and neurosurgeon tomorrow to schedule a follow-up appointment for reevaluation. She states she has her physical therapy appointment tomorrow. She states she does not have any more Toradol or methocarbamol at home. Will send home with a prescription for naproxen, prednisone and Valium. We will also send home with 2 tabs of oxycodone. She is instructed to return to the ER at any time if worse. HPI General Mode of arrival: ambulatory . Date/Time Provider Initiated Documentation: 07/09/18 12:10 . Limitations to Documentation: no limitations . Information obtained by: patient . HPI Narrative: Patient is a 37-year-old female with a history of chronic lower back pain for the past several years, with a history of chronic lumbar disc herniation and back spasms who presents with worsening back spasms since awakening this morning. Patient states she sprained her left ankle 1 month ago and has been altering her gait due to this which has caused a worsening left buttock spasm. She denies any new injury yesterday, but states she awoke with worsening left buttock spasm radiating to her left calf. Patient states this does not feel like a nerve pain and that feels like a spasm. Patient states she has a history of lumbar laminectomy done in March 2018 and states she is followed by her primary care doctor Vesta Marrero as well as neurosurgeon Dr. Rodriguez for her chronic back pain. She states her pain was completely resolved after her surgery until 1 month ago when she started with worsening left buttock spasm. She states she was prescribed methocarbamol and Toradol for this. She states she had an MRI recently earlier this month and was told by Dr. Rodriguez that her pain appears muscular and there is no significant acute change on the MRI. She took her methocarbamol, Motrin and Tylenol at 6:00 this morning without relief. She also applied her TENS unit to her left buttock without relief. Patient drove herself to the ER. Patient required help getting out of her car in the ER parking lot due to significant pain. Patient states her parents are coming here to drive her home if needed. Patient denies any fever, abdominal pain, bowel or bladder incontinence, leg weakness or numbness, or saddle anesthesia. Related Data Home Medications Medication Instructions Recorded Confirmed duloxetine [Cymbalta] 2 cap PO DAILY 03/19/15 07/09/18 spironolactone 100 mg PO DAILY 04/23/17 07/09/18 acetaminophen [Pain Reliever Extra 1,000 mg PO PRN PRN 04/26/17 07/09/18 Strength] losartan 50 mg PO DAILY 04/26/17 07/09/18 Vaniqa 1 applic TOPICAL BID PRN 02/02/18 07/09/18 Vyvanse 70 mg PO QAM 02/02/18 07/09/18 aluminum chloride [Drysol] 1 DAILY 02/02/18 02/06/18 dextroamphetamine-amphetamine 20 mg PO DAILY PRN 02/02/18 07/09/18 [Adderall] gabapentin 900 mg PO TID PRN 02/02/18 07/09/18 glycopyrrolate 2 mg PO DAILY 02/02/18 07/09/18 Nexplanon 1 implant SUBDERMAL ONCE 05/16/18 07/09/18 diazepam [Valium] 5 mg PO TID PRN #7 tab 07/09/18 naproxen 250 mg PO BID PRN #20 tab 07/09/18 prednisone See Rx Instructions .ROUTE 07/09/18 .COMPLEX #12 tab Previous Rx's Medication Instructions Recorded diazepam [Valium] 5 mg PO TID PRN #7 tab 07/09/18 naproxen 250 mg PO BID PRN #20 tab 07/09/18 prednisone See Rx Instructions .ROUTE 07/09/18 .COMPLEX #12 tab Allergies Allergy/AdvReac Type Severity Reaction Status Date / Time codeine AdvReac Mild Hyper Unverified 07/09/18 12:19 General Stated Complaint: Nk/Back Pain CARMEL: 3 Review of Systems Review of Systems All systems reviewed & are unremarkable except as noted in HPI and below Constitutional Reports as per HPI, Denies chills and Denies fever(s) Eyes Denies blurry vision ENT Denies dizziness, Denies sore throat and Denies throat swelling Cardiovascular Denies chest pain and Denies dyspnea Respiratory Denies cough and Denies dyspnea Gastrointestinal Denies abdominal pain, Denies diarrhea and Denies vomiting Genitourinary Denies hematuria and Denies dysuria Musculoskeletal Reports back pain, Denies numbness and Reports other (L leg pain) Integumentary/Breasts Denies lesions and Denies rash Neurologic Denies dizziness, Denies focal weakness and Denies numbness Allergic/Immunologic Denies throat swelling [facility] Medical History Back pain Depression Fatigue HTN (hypertension) Hirsutism Lactose intolerance Lumbar radiculopathy Malaise Migraines Obesity Sleep apnea Snoring Surgical History History of knee surgery (Acute) discectomy laminectomy Social History Smoking/Tobacco Use Status: Current every day Alcohol Intake: never Drug use: Rarely Substance use type: marijuana Do you feel safe in your relationship?: Yes Exam Const General: cooperative, healthy appearing and acute distress moderate (appears uncomfortable, crying in pain, laying on R side) Nutritional Appearance: average body habitus Orientation: alert, awake and oriented x3 HENMT Head: normal to inspection Face and sinus: normal facial exam Eyes General: appearance normal, both eyes and all related structures Neck Neck: normal visual inspection Chest Chest: normal inspection of the chest and no tenderness Resp Effort & Inspection: normal respiratory effort and able to speak in complete sentences Auscultation: clear to auscultation bilaterally Cardio Rate: regular rate Rhythm: regular rhythm GI Inspection: normal to inspection Palpation: soft, not firm, not rigid and nontender Auscultation: normal bowel sounds Back/Spine/Pelvis Thoracic/Lumbar Spine: surgical scar(s) present (midline lumbar spine, well healed, no signs of infection) and straight leg raise negative bilaterally Pelvis: no buttock ecchymosis, buttock tenderness on the left and no buttock swelling Skin General skin exam: no rashes or lesions noted Neuro General: alert, awake and oriented x3 Cognition: normal cognition Speech: speech normal Motor: muscle tone normal throughout and strength 5/5 throughout Sensory Exam: no sensory deficits noted Other: Bilateral patellar/Achilles reflexes hypoactive. Negative Babinski bilaterally. Extrem General: normal to inspection, full ROM, normal capillary refill, no clubbing, cyanosis or edema, no calf tenderness bilaterally and no edema Left lower extremity: normal to inspection, full ROM and foot Details: vascular exam Details: dorsalis pedis pulse present and posterior tibial pulse present Psych Appearance: grossly normal Mental Status: mental status grossly normal Speech and Movement: speech and movement normal Affect: normal affect Course Vital Signs Temperature 98.6 F 07/09/18 12:15 Pulse 82 07/09/18 12:15 Respiratory Rate 16 07/09/18 12:15 Blood Pressure 161/115 H 07/09/18 12:15 Pulse Oximetry 98 07/09/18 12:15 Temperature 98.6 F 07/09/18 12:15 Temperature Source Skin 07/09/18 12:15 Pulse 82 07/09/18 12:15 Respiratory Rate 16 07/09/18 12:15 Respiratory Effort Non-Labored 07/09/18 12:15 Blood Pressure 161/115 H 07/09/18 12:15 Blood Pressure Position Sitting 07/09/18 12:15 Pulse Oximetry 98 07/09/18 12:15 Oxygen Delivery Method Room Air 07/09/18 12:15 Oxygen Flow Rate 0 07/09/18 12:15 Pain Level 10 07/09/18 12:21 Comment 07/09/18 12:15
[2018-07-09] MEDS: Ketorolac 60 MG/2 ML VIAL IM (12:43)
[2018-07-09] MEDS: predniSONE 20 MG TAB 60 MG PO (12:44)
[2018-07-09] MEDS: diazePAM 5 MG TAB PO (12:45)
[2018-07-09] MEDS: oxyCODONE 5 MG TAB PO (12:45)
[2018-07-09] MEDS: oxyCODONE 5 MG TAB 10 MG PO (14:13)
[2018-07-09 14:15] VITALS: BP 107/77; PULSE 67; RESP 15; O2SAT 97
[2018-07-09 14:20] VITALS: BP 107/77; PULSE 67; RESP 15; O2SAT 97
== END 2018-07-09 14:27 | disposition home or self-care (01) ==
PROVIDERS: Emergency Provider Physician Assistant; PCP Nurse Practitioner Family
DX: M54.5 Low back pain (principal); M62.830 Muscle spasm of back; M54.32 Sciatica, left side; G89.29 Other chronic pain; I10 Essential (primary) hypertension
CPT/HCPCS: 96372; 99284; 99283; J1885; J7512

== ENCOUNTER 2018-07-21 02:33 | Outpatient (CLI) | payer MEDICAID, SELFPAY ==
[2018-07-21] MEDS: Gadoterate meglumine 20 ML VIAL 19 ML IVP (14:47)
--- NOTE | 2018-07-21 15:12 | DI.MRI_ITS ---
SYMPTOMS/DIAGNOSIS: LUMBAR BACK PAIN WITH RADICULOPATHY, M54.16, F/U WO MRI 06/22/18, CAUDA EQUINA, G83.4 LUMBOSACRAL SPINE MRI: MRI examination of the lumbosacral spine was performed utilizing pre and post contrast T1 fat-sat imaging to complement the recent noncontrast lumbar spine MRI, which showed apparent disc herniations at L5-S1 on the left, left paracentral at L4-5, and central at L3-4. The patient has a history of previous lumbar spine surgery. On today's examination, there appears to be enhancement at the level of the suspected L5-S1 disc herniation and the findings are suggestive of fibrosis rather than recurrent disc herniation. At both the L4-5 and L3-4 levels, however, there does not appear to be enhancement associated with the canal deformity and abnormal signal and the findings are consistent with recurrent disc herniations. No other enhancing lesion identified. CONCLUSION: Findings consistent with recurrent disc herniations at L4-5 and L3- 4. Findings at L5-S1 seen on recent MRI appear to probably be postsurgical in nature with no evidence of recurrent disc herniation.
== END 2018-07-21 02:53 ==
PROVIDERS: PCP Nurse Practitioner Family; Visit Provider Nurse Practitioner
DX: M54.16 Radiculopathy, lumbar region (principal); M51.16 Intervertebral disc disorders with radiculopathy, lumbar region; Z98.890 Other specified postprocedural states
CPT/HCPCS: 72149

== ENCOUNTER 2018-08-01 17:00 | Emergency (ER) | payer MEDICAID, SELFPAY ==
[2018-08-01 17:04] VITALS: BP 136/50; PULSE 100; RESP 16; TEMP 36.7; O2SAT 97
--- NOTE | 2018-08-01 17:08 | W.ED.GENAD ---
Discharge Plan Disposition Patient Disposition: HOME Condition: Fair Discharge Details Chief Complaint: Nk/Back Pain Clinical Impression: Acute exacerbation of chronic low back pain, Left lumbar radiculitis Primary Care Provider: Vesta Marrero ED Provider: Jarek Rodriguez [place] Meds and New Rx's Prescriptions: New methocarbamol [Robaxin] 500 mg tablet 1,000 mg PO QID Qty: 30 RF: 0 Continued duloxetine [Cymbalta] 60 MG capsule,delayed release(DR/EC) 2 cap PO DAILY RF: 0 losartan 50 MG tablet 50 mg PO DAILY RF: 0 prednisone 20 mg tablet See Rx Instructions .ROUTE .COMPLEX Qty: 12 RF: 0 diazepam [Valium] 5 mg tablet 5 mg PO TID PRN (Reason: muscle spasm) Qty: 7 RF: 0 naproxen 250 mg tablet 250 mg PO BID PRN (Reason: pain) Qty: 20 RF: 0 spironolactone 50 MG tablet 100 mg PO DAILY RF: 0 gabapentin 300 mg Capsule 900 mg PO TID PRNRF: 0 glycopyrrolate 2 mg Tablet 2 mg PO DAILY RF: 0 Vaniqa 13.9 % Cream 1 applic TOPICAL BID PRNRF: 0 Vyvanse 70 mg Capsule 70 mg PO QAM RF: 0 aluminum chloride [Drysol] 20 % Solution 1 DAILY RF: 0 dextroamphetamine-amphetamine [Adderall] 20 mg Tablet 20 mg PO DAILY PRNRF: 0 Nexplanon 68 mg Implant 1 implant SUBDERMAL ONCE RF: 0 Changed acetaminophen [Pain Reliever Extra Strength] 500 MG tablet 1,000 mg PO Q6H PRNQty: 0 RF: 0 Discharge Instructions Additional Instructions: Please try to find primary care. Case management will refer you to Dr. Thompson. You may continue to try to get into [facility]. Should also follow-up with the pain clinic and your neurosurgeon. Please return to ED for any neurologic changes, bladder or bowel problems, severe worsening pain. Referrals: Care Management [Provider Group] Medical Decision Making I have reviewed the patient's MRI results. I have reviewed her previous ED visit here. Her exam reveals chronic neurologic changes in the lower extremities but nothing new or acute per the patient. Rectal tone is normal. There is no saddle anesthesia. She just had an MRI done about 10 days ago which showed no evidence of cauda equina. I have discussed with the patient that I am not able to prescribe pain medication for chronic issues like hers. I can take care of the acute problem here. I can try to help get her primary care quicker. I can certainly prescribe muscle relaxants but I cannot prescribe benzodiazepines or narcotics. She is already on gabapentin at her maximum dose. She is already on steroids. She uses naproxen as a nonsteroidal. She is given IM Toradol, IM Dilaudid and p.o. Robaxin here. Patient's pain is better but not gone. She understands that it will not go away. She is more comfortable. Her heart rate and blood pressure have come back to normal. I have agreed to provide patient prescription for Robaxin. She has been placed on case briefer list for primary care help. She should return to the emergency department for any new neurologic changes. Medical Records Medical records reviewed: Yes I reviewed the patient's medical records. HPI General Mode of arrival: wheelchair. Date/Time Provider Initiated Documentation: 08/01/18 17:01. Limitations to Documentation: no limitations. Information obtained by: patient and old records reviewed. HPI Narrative: Patient presents to ED with complaints of left sided lower back pain radiating down her left leg. This has been an ongoing issue for 2 months. She has a neurosurgeon. She lost her primary care physician last week apparently on mutual agreement. She has had MRIs x2 within the last month. She sees a chiropractor. She was at [place] to ED last night. She comes to this ED tonight complaining of continued severe pain. She has had previous back surgery last fall. She did well after that until about 2 months ago. 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 She does not have new neurologic changes. She occasionally has some incontinence. She does not have retention. She has no complaints of numbness and tingling. Related Data Home Medications Medication Instructions Recorded Confirmed duloxetine [Cymbalta] 2 cap PO DAILY 03/19/15 08/01/18 spironolactone 100 mg PO DAILY 04/23/17 08/01/18 losartan 50 mg PO DAILY 04/26/17 08/01/18 Vaniqa 1 applic TOPICAL BID PRN 02/02/18 08/01/18 Vyvanse 70 mg PO QAM 02/02/18 08/01/18 aluminum chloride [Drysol] 1 DAILY 02/02/18 02/06/18 dextroamphetamine-amphetamine 20 mg PO DAILY PRN 02/02/18 08/01/18 [Adderall] gabapentin 900 mg PO TID PRN 02/02/18 08/01/18 glycopyrrolate 2 mg PO DAILY 02/02/18 08/01/18 Nexplanon 1 implant SUBDERMAL ONCE 05/16/18 08/01/18 diazepam [Valium] 5 mg PO TID PRN #7 tab 07/09/18 08/01/18 naproxen 250 mg PO BID PRN #20 tab 07/09/18 08/01/18 prednisone See Rx Instructions .ROUTE 07/09/18 08/01/18 .COMPLEX #12 tab acetaminophen [Pain Reliever Extra 1,000 mg PO Q6H PRN #0 tab 08/01/18 08/01/18 Strength] methocarbamol [Robaxin] 1,000 mg PO QID #30 tab 08/01/18 Previous Rx's Medication Instructions Recorded diazepam [Valium] 5 mg PO TID PRN #7 tab 07/09/18 naproxen 250 mg PO BID PRN #20 tab 07/09/18 prednisone See Rx Instructions .ROUTE 07/09/18 .COMPLEX #12 tab acetaminophen [Pain Reliever Extra 1,000 mg PO Q6H PRN #0 tab 08/01/18 Strength] methocarbamol [Robaxin] 1,000 mg PO QID #30 tab 08/01/18 Allergies Allergy/AdvReac Type Severity Reaction Status Date / Time codeine AdvReac Mild Hyper Unverified 08/01/18 17:12 General CARMEL: 3 Review of Systems Review of Systems As documented in HPI otherwise negative as below. Const: no fever, chills, weakness Resp: no cough, SOB, pleuritic pain CV: no CP, diaphoresis, edema, syncope GI: no abdominal pain, nausea, vomiting, diarrhea Neuro: no headache, numbness, focal weakness, confusion [facility] Medical History Lumbar radiculopathy (Acute) Chronic back pain (Chronic) Depression (Chronic) HTN (hypertension) (Chronic) Hirsutism (Chronic) Lactose intolerance (Chronic) Migraines (Chronic) Obesity (Chronic) Sleep apnea (Chronic) Surgical History discectomy (Chronic) laminectomy (Chronic) History of knee surgery (Inactive) Social History Smoking/Tobacco Use Status: Current every day Alcohol Intake: never Drug use: Rarely Substance use type: marijuana Do you feel safe in your relationship?: Yes Exam Narrative Exam Narrative: Vitals: Vital signs reveal mild tachycardia and hypotension likely related to pain. She is not febrile. Const: Obese female lying on right side on stretcher crying. HEENT: NC/AT. Normal facial exam. Lungs: Normal respiratory effort. Back: TENS unit on left lower back. No midline tenderness. Neuro: A+O x3. CN grossly in tact. Focused lower extremity neurological exam reveals inability to extend her toes on the left which is old per the patient. Dorsiflexion is mostly intact. Plantar flexion is normal. Strength is otherwise 5 out of 5 in the lower extremities. Sensation is intact. There is no saddle anesthesia. Achilles reflex is 2+ and normal bilateral. Right patella 2+ and normal. Left patella 1+ but unchanged from previous per patient. Rectal tone is normal. Rectal exam performed with female nurse present. Ext: No C/C/E. No deformity or tenderness. Skin: Warm and dry without rash.
--- NOTE | 2018-08-01 17:11 | ED.GENADUL_ITS ---
Discharge Plan Disposition Patient Disposition: HOME Condition: Fair Discharge Details Chief Complaint: Nk/Back Pain Clinical Impression: Acute exacerbation of chronic low back pain, Left lumbar radiculitis Primary Care Provider: Vesta Marrero ED Provider: Jarek Rodriguez [place] Meds and New Rx's Prescriptions: New methocarbamol [Robaxin] 500 mg tablet 1,000 mg PO QID Qty: 30 RF: 0 Continued duloxetine [Cymbalta] 60 MG capsule,delayed release(DR/EC) 2 cap PO DAILY RF: 0 losartan 50 MG tablet 50 mg PO DAILY RF: 0 prednisone 20 mg tablet See Rx Instructions .ROUTE .COMPLEX Qty: 12 RF: 0 diazepam [Valium] 5 mg tablet 5 mg PO TID PRN (Reason: muscle spasm) Qty: 7 RF: 0 naproxen 250 mg tablet 250 mg PO BID PRN (Reason: pain) Qty: 20 RF: 0 spironolactone 50 MG tablet 100 mg PO DAILY RF: 0 gabapentin 300 mg Capsule 900 mg PO TID PRNRF: 0 glycopyrrolate 2 mg Tablet 2 mg PO DAILY RF: 0 Vaniqa 13.9 % Cream 1 applic TOPICAL BID PRNRF: 0 Vyvanse 70 mg Capsule 70 mg PO QAM RF: 0 aluminum chloride [Drysol] 20 % Solution 1 DAILY RF: 0 dextroamphetamine-amphetamine [Adderall] 20 mg Tablet 20 mg PO DAILY PRNRF: 0 Nexplanon 68 mg Implant 1 implant SUBDERMAL ONCE RF: 0 Changed acetaminophen [Pain Reliever Extra Strength] 500 MG tablet 1,000 mg PO Q6H PRNQty: 0 RF: 0 Discharge Instructions Additional Instructions: Please try to find primary care. Case management will refer you to Dr. Thompson. You may continue to try to get into [facility]. Should also follow-up with the pain clinic and your neurosurgeon. Please return to ED for any neurologic changes, bladder or bowel problems, severe worsening pain. Referrals: Care Management [Provider Group] Medical Decision Making I have reviewed the patient's MRI results. I have reviewed her previous ED visit here. Her exam reveals chronic neurologic changes in the lower extremities but nothing new or acute per the patient. Rectal tone is normal. There is no saddle anesthesia. She just had an MRI done about 10 days ago which showed no evidence of cauda equina. I have discussed with the patient that I am not able to prescribe pain medication for chronic issues like hers. I can take care of the acute problem here. I can try to help get her primary care quicker. I can certainly prescribe muscle relaxants but I cannot prescribe benzodia zepines or narcotics. She is already on gabapentin at her maximum dose. She is already on steroids. She uses naproxen as a nonsteroidal. She is given IM Toradol, IM Dilaudid and p.o. Robaxin here. Patient's pain is better but not gone. She understands that it will not go away. She is more comfortable. Her heart rate and blood pressure have come back to normal. I have agreed to provide patient prescription for Robaxin. She has been placed on case folder list for primary care help. She should return to the emergency department for any new neurologic changes. Medical Records Medical records reviewed: Yes I reviewed the patient's medical records. HPI General Mode of arrival: wheelchair . Date/Time Provider Initiated Documentation: 08/01/18 17:01 . Limitations to Documentation: no limitations . Information obtained by: patient and old records reviewed . HPI Narrative: Patient presents to ED with complaints of left sided lower back pain radiating down her left leg. This has been an ongoing issue for 2 months. She has a neurosurgeon. She lost her primary care physician last week apparently on mutual agreement. She has had MRIs x2 within the last month. She sees a chiropractor. She was at [facility] to ED last night. She comes to this ED tonight complaining of continued severe pain. She has had previous back surgery last fall. She did well after that until about 2 months ago. 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 She does not have new neurologic changes. She occasionally has some incontinence. She does not have retention. She has no complaints of numbness and tingling. Related Data Home Medications Medication Instructions Recorded Confirmed duloxetine [Cymbalta] 2 cap PO DAILY 03/19/15 08/01/18 spironolactone 100 mg PO DAILY 04/23/17 08/01/18 losartan 50 mg PO DAILY 04/26/17 08/01/18 Vaniqa 1 applic TOPICAL BID PRN 02/02/18 08/01/18 Vyvanse 70 mg PO QAM 02/02/18 08/01/18 aluminum chloride [Drysol] 1 DAILY 02/02/18 02/06/18 dextroamphetamine-amphetamine 20 mg PO DAILY PRN 02/02/18 08/01/18 [Adderall] gabapentin 900 mg PO TID PRN 02/02/18 08/01/18 glycopyrrolate 2 mg PO DAILY 02/02/18 08/01/18 Nexplanon 1 implant SUBDERMAL ONCE 05/16/18 08/01/18 diazepam [Valium] 5 mg PO TID PRN #7 tab 07/09/18 08/01/18 naproxen 250 mg PO BID PRN #20 tab 07/09/18 08/01/18 prednisone See Rx Instructions .ROUTE 07/09/18 08/01/18 .COMPLEX #12 tab acetaminophen [Pain Reliever Extra 1,000 mg PO Q6H PRN #0 tab 08/01/18 08/01/18 Strength] methocarbamol [Robaxin] 1,000 mg PO QID #30 tab 08/01/18 Previous Rx's Medication Instructions Recorded diazepam [Valium] 5 mg PO TID PRN #7 tab 07/09/18 naproxen 250 mg PO BID PRN #20 tab 07/09/18 prednisone See Rx Instructions .ROUTE 07/09/18 .COMPLEX #12 tab acetaminophen [Pain Reliever Extra 1,000 mg PO Q6H PRN #0 tab 08/01/18 Strength] methocarbamol [Robaxin] 1,000 mg PO QID #30 tab 08/01/18 Allergies Allergy/AdvReac Type Severity Reaction Status Date / Time codeine AdvReac Mild Hyper Unverified 08/01/18 17:12 General CARMEL: 3 Review of Systems Review of Systems As documented in HPI otherwise negative as below. Const: no fever, chills, weakness Resp: no cough, SOB, pleuritic pain CV: no CP, diaphoresis, edema, syncope GI: no abdominal pain, nausea, vomiting, diarrhea Neuro: no headache, numbness, focal weakness, confusion PFSH Medical History Lumbar radiculopathy (Acute) Chronic back pain (Chronic) Depression (Chronic) HTN (hypertension) (Chronic) Hirsutism (Chronic) Lactose intolerance (Chronic) Migraines (Chronic) Obesity (Chronic) Sleep apnea (Chronic) Surgical History discectomy (Chronic) laminectomy (Chronic) History of knee surgery (Inactive) Social History Smoking/Tobacco Use Status: Current every day Alcohol Intake: never Drug use: Rarely Substance use type: marijuana Do you feel safe in your relationship?: Yes Exam Narrative Exam Narrative: Vitals: Vital signs reveal mild tachycardia and hypotension likely related to pain. She is not febrile. Const: Obese female lying on right side on stretcher crying. HEENT: NC/AT. Normal facial exam. Lungs: Normal respiratory effort. Back: TENS unit on left lower back. No midline tenderness. Neuro: A+O x3. CN grossly in tact. Focused lower extremity neurological exam reveals inability to extend her toes on the left which is old per the patient. Dorsiflexion is mostly intact. Plantar flexion is normal. Strength is otherwise 5 out of 5 in the lower extremities. Sensation is intact. There is no saddle anesthesia. Achilles reflex is 2+ and normal bilateral. Right patella 2+ and normal. Left patella 1+ but unchanged from previous per patient. Rectal tone is normal. Rectal exam performed with female nurse present. Ext: No C/C/E. No deformity or tenderness. Skin: Warm and dry without rash.
[2018-08-01] MEDS: HYDROmorphone 2 MG/ML VIAL 1 MG IM (17:47)
[2018-08-01] MEDS: Methocarbamol 500 MG TAB 1000 MG PO (17:48)
[2018-08-01] MEDS: Ketorolac 60 MG/2 ML VIAL IM (17:48)
[2018-08-01 18:07] VITALS: BP 119/78; PULSE 85; TEMP 37.3; O2SAT 96
== END 2018-08-01 18:44 | disposition home or self-care (01) ==
PROVIDERS: Emergency Provider Emergency Medicine; PCP Nurse Practitioner Family
DX: M54.5 Low back pain (principal); M54.16 Radiculopathy, lumbar region
CPT/HCPCS: 96372; 96374; 96375; 99284; J1885

== ENCOUNTER 2018-08-02 22:02 | Emergency (ER) | payer MEDICAID, SELFPAY ==
[2018-08-02 22:11] VITALS: BP 163/112; PULSE 86; RESP 18; TEMP 37.7; O2SAT 96
[2018-08-02 22:19] VITALS: BP 132/90
--- NOTE | 2018-08-02 22:32 | ED.GENADUL_ITS ---
Discharge Plan Disposition Patient Disposition: HOME Condition: Good Discharge Details Chief Complaint: Nk/Back Pain Clinical Impression: Acute exacerbation of chronic low back pain, Left lumbar radiculitis Primary Care Provider: Vesta Marrero ED Provider: Jarek Rodriguez [place] Meds and New Rx's Prescriptions: New lidocaine [Lidoderm] 5 % adhesive patch,medicated 1 patch TP DAILY Qty: 15 RF: 0 Continued duloxetine [Cymbalta] 60 MG capsule,delayed release(DR/EC) 2 cap PO DAILY RF: 0 losartan 50 MG tablet 50 mg PO DAILY RF: 0 prednisone 20 mg tablet See Rx Instructions .ROUTE .COMPLEX Qty: 12 RF: 0 diazepam [Valium] 5 mg tablet 5 mg PO TID PRN (Reason: muscle spasm) Qty: 7 RF: 0 spironolactone 50 MG tablet 100 mg PO DAILY RF: 0 gabapentin 300 mg Capsule 900 mg PO TID PRNRF: 0 glycopyrrolate 2 mg Tablet 2 mg PO DAILY RF: 0 Vaniqa 13.9 % Cream 1 applic TOPICAL BID PRNRF: 0 Vyvanse 70 mg Capsule 70 mg PO QAM RF: 0 aluminum chloride [Drysol] 20 % Solution 1 DAILY RF: 0 dextroamphetamine-amphetamine [Adderall] 20 mg Tablet 20 mg PO DAILY PRNRF: 0 Nexplanon 68 mg Implant 1 implant SUBDERMAL ONCE RF: 0 methocarbamol [Robaxin] 500 mg tablet 1,000 mg PO QID Qty: 30 RF: 0 acetaminophen [Pain Reliever Extra Strength] 500 MG tablet 1,000 mg PO Q6H PRNQty: 0 RF: 0 Changed naproxen 250 mg tablet 500 mg PO BID PRN (Reason: pain) Qty: 20 RF: 0 Discharge Instructions Additional Instructions: Please try to arrange for primary care or pain clinic follow-up. Finish your steroid burst. Resume previous medications. Try Lidoderm and naproxen to see if any help with pain. Return to ED for any neurologic changes, abdominal pain, other concerns or problems. Medical Decision Making Patient continues with acute exacerbation of chronic back pain. She has no new neurologic findings. There is no saddle anesthesia. She was seen by me yesterday. Her exam remains unchanged. She has been taking the Robaxin. She still needs to find primary care. She will receive IM Toradol and Dilaudid once again. 00:01 -patient feeling better again. Moving around in the bed and no longer crying. Had further discussion regarding primary care and pain management. Knows I cannot discharge her on narcotics or benzodiazepines. She reports no nonsteroidal prescriptions. Will resume nonsteroidals. We will have her try Lidoderm patch. Return to ED for neurologic changes. HPI General Mode of arrival: wheelchair . Date/Time Provider Initiated Documentation: 08/02/18 22:32 . Limitations to Documentation: no limitations . Information obtained by: patient . HPI Narrative: Patient returns to ED with continued complaint of low back pain radiating down the left leg. Patient was seen by me yesterday for same. Patient has history of chronic back problems. She has no new neurologic changes. She has no new complaints. She reports not hearing from primary child day care center worker she was referred to. She spoke to on-call coverage and was referred back to ED for symptomatic management if she felt she needed it. Related Data Home Medications Medication Instructions Recorded Confirmed duloxetine [Cymbalta] 2 cap PO DAILY 03/19/15 08/02/18 spironolactone 100 mg PO DAILY 04/23/17 08/02/18 losartan 50 mg PO DAILY 04/26/17 08/02/18 Vaniqa 1 applic TOPICAL BID PRN 02/02/18 08/02/18 Vyvanse 70 mg PO QAM 02/02/18 08/02/18 aluminum chloride [Drysol] 1 DAILY 02/02/18 02/06/18 dextroamphetamine-amphetamine 20 mg PO DAILY PRN 02/02/18 08/02/18 [Adderall] gabapentin 900 mg PO TID PRN 02/02/18 08/02/18 glycopyrrolate 2 mg PO DAILY 02/02/18 08/02/18 Nexplanon 1 implant SUBDERMAL ONCE 05/16/18 08/02/18 diazepam [Valium] 5 mg PO TID PRN #7 tab 07/09/18 08/02/18 prednisone See Rx Instructions .ROUTE 07/09/18 08/02/18 .COMPLEX #12 tab acetaminophen [Pain Reliever Extra 1,000 mg PO Q6H PRN #0 tab 08/01/18 08/02/18 Strength] methocarbamol [Robaxin] 1,000 mg PO QID #30 tab 08/01/18 08/02/18 lidocaine [Lidoderm] 1 patch TP DAILY #15 each 08/03/18 naproxen 500 mg PO BID PRN #20 tab 08/03/18 Previous Rx's Medication Instructions Recorded diazepam [Valium] 5 mg PO TID PRN #7 tab 07/09/18 prednisone See Rx Instructions .ROUTE 07/09/18 .COMPLEX #12 tab acetaminophen [Pain Reliever Extra 1,000 mg PO Q6H PRN #0 tab 08/01/18 Strength] methocarbamol [Robaxin] 1,000 mg PO QID #30 tab 08/01/18 lidocaine [Lidoderm] 1 patch TP DAILY #15 each 08/03/18 naproxen 500 mg PO BID PRN #20 tab 08/03/18 Allergies Allergy/AdvReac Type Severity Reaction Status Date / Time codeine AdvReac Mild Hyper Unverified 08/01/18 17:12 General Stated Complaint: Nk/Back Pain CARMEL: 3 Review of Systems Review of Systems As documented in HPI otherwise negative as below. Const: no fever, chills, weakness Resp: no cough, SOB, pleuritic pain CV: no CP, diaphoresis, edema, syncope GI: no abdominal pain, nausea, vomiting, diarrhea Neuro: old foot drop; no headache, numbness, confusion PFSH Social History Smoking/Tobacco Use Status: Current every day Alcohol Intake: never Drug use: Rarely Substance use type: marijuana Do you feel safe in your relationship?: Yes Exam Narrative Exam Narrative: Const: Obese female lying on stretcher crying. HEENT: NC/AT. Normal facial exam. Eyes: Normal conjunctiva and sclera. Neck: Supple. Trachea midline. GI: Soft. NT/ND. No guarding or rebound. Back: No midline tenderness. Some left sided low tenderness. Neuro: A+O x 3. CN grossly in tact. Continues to have old left foot drop. Otherwise 5/5 strength. Sensory in tact. No saddle anesthesia. Reflexes with normal bilateral Achilles, normal right patella, decreased left patella reflex as previous. Ext: No C/C/E. No deformity or tenderness. Skin: Warm and dry without rash. Course Vital Signs Temperature 99.9 F H 08/02/18 22:11 Pulse 86 08/02/18 22:11 Respiratory Rate 18 08/02/18 22:11 Blood Pressure 163/112 H 08/02/18 22:11 Pulse Oximetry 96 08/02/18 22:11 Temperature 99.9 F H 08/02/18 22:11 Temperature Source Temporal Artery Scan 08/02/18 22:11 Pulse 86 08/02/18 22:11 Respiratory Rate 18 08/02/18 22:11 Respiratory Effort 08/02/18 22:20 Blood Pressure 132/90 08/02/18 22:19 Pulse Oximetry 96 08/02/18 22:11 Oxygen Delivery Method Room Air 08/02/18 22:11 Oxygen Flow Rate 0 08/02/18 22:11 Pain Level 10 08/02/18 22:11
[2018-08-02] MEDS: HYDROmorphone 2 MG/ML VIAL IM (22:52)
[2018-08-02] MEDS: Ketorolac 60 MG/2 ML VIAL IM (22:52)
[2018-08-02 23:17] VITALS: BP 130/83; PULSE 77; RESP 18; TEMP 37.3; O2SAT 96
== END 2018-08-03 00:17 | disposition home or self-care (01) ==
PROVIDERS: Emergency Provider Emergency Medicine; PCP Nurse Practitioner Family
DX: M54.5 Low back pain (principal); M54.16 Radiculopathy, lumbar region
CPT/HCPCS: J1885

== ENCOUNTER 2018-08-04 14:47 | Emergency (ER) | payer MEDICAID, SELFPAY ==
[2018-08-04 14:55] VITALS: BP 127/79; PULSE 79; RESP 16; TEMP 37; O2SAT 96
--- NOTE | 2018-08-04 15:20 | W.ED.GENAD ---
Discharge Plan Disposition Patient Disposition: HOME Condition: Stable Discharge Details Chief Complaint: Nk/Back Pain Clinical Impression: Left lumbar radiculitis Primary Care Provider: Edmond Thompson ED Provider: Vlad Richmond [place] Meds and New Rx's Prescriptions: New ketorolac 10 mg tablet 10 mg PO Q6H PRN (Reason: pain) 5 Days Qty: 30 RF: 0 Continued duloxetine [Cymbalta] 60 MG capsule,delayed release(DR/EC) 2 cap PO DAILY RF: 0 losartan 50 MG tablet 50 mg PO DAILY RF: 0 diazepam [Valium] 5 mg tablet 5 mg PO TID PRN (Reason: muscle spasm) Qty: 7 RF: 0 spironolactone 50 MG tablet 100 mg PO DAILY RF: 0 gabapentin 300 mg Capsule 900 mg PO TID PRNRF: 0 glycopyrrolate 2 mg Tablet 2 mg PO DAILY RF: 0 Vaniqa 13.9 % Cream 1 applic TOPICAL BID PRNRF: 0 Vyvanse 70 mg Capsule 70 mg PO QAM RF: 0 aluminum chloride [Drysol] 20 % Solution 1 DAILY RF: 0 dextroamphetamine-amphetamine [Adderall] 20 mg Tablet 20 mg PO DAILY PRNRF: 0 Nexplanon 68 mg Implant 1 implant SUBDERMAL ONCE RF: 0 methocarbamol [Robaxin] 500 mg tablet 1,000 mg PO QID Qty: 30 RF: 0 acetaminophen [Pain Reliever Extra Strength] 500 MG tablet 1,000 mg PO Q6H PRNQty: 0 RF: 0 lidocaine [Lidoderm] 5 % adhesive patch,medicated 1 patch TP DAILY Qty: 15 RF: 0 Discontinued prednisone 20 mg tablet See Rx Instructions .ROUTE .COMPLEX Qty: 12 RF: 0 naproxen 250 mg tablet 500 mg PO BID PRN (Reason: pain) Qty: 20 RF: 0 Discharge Instructions Additional Instructions: I have placed you on the follow up list to see the spine specialists at [facility] stop taking the prednisone and start taking ketorolac Medical Decision Making 37 yo female with hx of chronic low back pain, had an MRI done last week showing no spincal cord compression or other emergent findings, does have some disc herniations. She has been on tylenol, muscle relaxers and prednisone without relief. She changed to a new pcp today after she states her old pcp did nothing for her and saw Dr. Thompson who referred her here for eval due to her pain. the pt has been seen here several times recently for this and received IM dilaudid with relief. She localizes the pain to the lower left back with radiation to the left upper thigh similar to her prior pain. She has no urinary retention. She has no saddle anesthesia or abdominal tenderness. I advised that I don't feel comfortable treating this pain with opiates given lack of clinical benefit from this. She has seen pain clinic in the past but states she doesn't see them anymore due to prior disagreements. I do not feel there is an acute pathology requiring workup at this time. I recommended stopping the prednisone and starting nsaids and will prescribe toradol, and based on uptodate recs there is some evidence of duloxetine helping so will start this. She has no abodminal tenderness and states that this pain is similar to her chronic pain so doubt intrabdominal pathology at this time but did advise if she develops abdominal pain rto return to the emergency department on med review pt was already on cymbalta so this was not prescribed Differential Diagnosis lumbar radiculopathy, disc herniations HPI General Mode of arrival: wheelchair. Date/Time Provider Initiated Documentation: 08/04/18 14:48. Limitations to Documentation: no limitations. Information obtained by: patient and family. History of Present Illness 37 year old F presents to the emergency department with the chief complaint of low back pain, described as severe, Quality is described as aching, and is localized to the back. Patient started experiencing this month(s) (3) and it has been constant. No relieving factors improve symptom(s), No exacerbating factors reported . Patient did receive the following treatments prior to arrival, none Related Data Home Medications Medication Instructions Recorded Confirmed duloxetine [Cymbalta] 2 cap PO DAILY 03/19/15 08/04/18 spironolactone 100 mg PO DAILY 04/23/17 08/04/18 losartan 50 mg PO DAILY 04/26/17 08/04/18 Vaniqa 1 applic TOPICAL BID PRN 02/02/18 08/04/18 Vyvanse 70 mg PO QAM 02/02/18 08/04/18 aluminum chloride [Drysol] 1 DAILY 02/02/18 02/06/18 dextroamphetamine-amphetamine 20 mg PO DAILY PRN 02/02/18 08/04/18 [Adderall] gabapentin 900 mg PO TID PRN 02/02/18 08/04/18 glycopyrrolate 2 mg PO DAILY 02/02/18 08/04/18 Nexplanon 1 implant SUBDERMAL ONCE 05/16/18 08/04/18 diazepam [Valium] 5 mg PO TID PRN #7 tab 07/09/18 08/04/18 acetaminophen [Pain Reliever Extra 1,000 mg PO Q6H PRN #0 tab 08/01/18 08/04/18 Strength] methocarbamol [Robaxin] 1,000 mg PO QID #30 tab 08/01/18 08/04/18 lidocaine [Lidoderm] 1 patch TP DAILY #15 each 08/03/18 08/04/18 ketorolac 10 mg PO Q6H PRN 5 Days #30 tab 08/04/18 Previous Rx's Medication Instructions Recorded diazepam [Valium] 5 mg PO TID PRN #7 tab 07/09/18 acetaminophen [Pain Reliever Extra 1,000 mg PO Q6H PRN #0 tab 08/01/18 Strength] methocarbamol [Robaxin] 1,000 mg PO QID #30 tab 08/01/18 lidocaine [Lidoderm] 1 patch TP DAILY #15 each 08/03/18 ketorolac 10 mg PO Q6H PRN 5 Days #30 tab 08/04/18 Allergies Allergy/AdvReac Type Severity Reaction Status Date / Time codeine AdvReac Mild Hyper Unverified 08/04/18 14:57 General Stated Complaint: Nk/Back Pain CARMEL: 4 Review of Systems Review of Systems All systems reviewed & are unremarkable except as noted in HPI and below Constitutional Denies chills, Denies fever(s) and Denies weakness ENT Denies change in voice Cardiovascular Denies chest pain and Denies dyspnea Respiratory Denies cough and Denies dyspnea Gastrointestinal Denies abdominal pain, Denies nausea and Denies vomiting Integumentary/Breasts Denies rash Neurologic Denies weakness [facility] Medical History Lumbar radiculopathy (Acute) Chronic back pain (Chronic) Depression (Chronic) HTN (hypertension) (Chronic) Hirsutism (Chronic) Lactose intolerance (Chronic) Migraines (Chronic) Obesity (Chronic) Sleep apnea (Chronic) Surgical History discectomy (Chronic) laminectomy (Chronic) History of knee surgery (Inactive) Social History Smoking/Tobacco Use Status: Current every day Alcohol Intake: never Drug use: Rarely Substance use type: marijuana Do you feel safe in your relationship?: Yes Exam Const General: anxious Orientation: alert HENMT Head: normal to inspection Ears: external ears normal General nose exam: external nose normal Mouth: moist mucous membranes Eyes General: appearance normal, both eyes and all related structures Neck Neck: normal visual inspection Resp Effort & Inspection: normal respiratory effort and able to speak in complete sentences Cardio Rate: regular rate Back/Spine/Pelvis Back: no CVA tenderness Skin General skin exam: no rashes or lesions noted Neuro General: alert and oriented x3 Extrem General: normal to inspection Psych Mental Status: mental status grossly normal Course Vital Signs Temperature 37.0 C 08/04/18 14:55 Pulse 79 08/04/18 14:55 Respiratory Rate 16 08/04/18 14:55 Blood Pressure 127/79 08/04/18 14:55 Pulse Oximetry 96 08/04/18 14:55 Temperature 37.0 C 08/04/18 14:55 Temperature Source Skin 08/04/18 14:55 Pulse 79 08/04/18 14:55 Respiratory Rate 16 08/04/18 14:55 Respiratory Effort Non-Labored 08/04/18 14:55 Blood Pressure 127/79 08/04/18 14:55 Blood Pressure Position Supine 08/04/18 14:55 Pulse Oximetry 96 08/04/18 14:55 Pain Level 10 08/04/18 15:12
[2018-08-04] MEDS: Ketorolac 30 MG/ML VIAL IM (15:24)
--- NOTE | 2018-08-04 15:26 | ED.GENADUL_ITS ---
Discharge Plan Disposition Patient Disposition: HOME Condition: Stable Discharge Details Chief Complaint: Nk/Back Pain Clinical Impression: Left lumbar radiculitis Primary Care Provider: Edmond Thompson ED Provider: Vlad Richmond Buhl Meds and New Rx's Prescriptions: New ketorolac 10 mg tablet 10 mg PO Q6H PRN (Reason: pain) 5 Days Qty: 30 RF: 0 Continued duloxetine [Cymbalta] 60 MG capsule,delayed release(DR/EC) 2 cap PO DAILY RF: 0 losartan 50 MG tablet 50 mg PO DAILY RF: 0 diazepam [Valium] 5 mg tablet 5 mg PO TID PRN (Reason: muscle spasm) Qty: 7 RF: 0 spironolactone 50 MG tablet 100 mg PO DAILY RF: 0 gabapentin 300 mg Capsule 900 mg PO TID PRNRF: 0 glycopyrrolate 2 mg Tablet 2 mg PO DAILY RF: 0 Vaniqa 13.9 % Cream 1 applic TOPICAL BID PRNRF: 0 Vyvanse 70 mg Capsule 70 mg PO QAM RF: 0 aluminum chloride [Drysol] 20 % Solution 1 DAILY RF: 0 dextroamphetamine-amphetamine [Adderall] 20 mg Tablet 20 mg PO DAILY PRNRF: 0 Nexplanon 68 mg Implant 1 implant SUBDERMAL ONCE RF: 0 methocarbamol [Robaxin] 500 mg tablet 1,000 mg PO QID Qty: 30 RF: 0 acetaminophen [Pain Reliever Extra Strength] 500 MG tablet 1,000 mg PO Q6H PRNQty: 0 RF: 0 lidocaine [Lidoderm] 5 % adhesive patch,medicated 1 patch TP DAILY Qty: 15 RF: 0 Discontinued prednisone 20 mg tablet See Rx Instructions .ROUTE .COMPLEX Qty: 12 RF: 0 naproxen 250 mg tablet 500 mg PO BID PRN (Reason: pain) Qty: 20 RF: 0 Discharge Instructions Additional Instructions: I have placed you on the follow up list to see the spine specialists at [facility] stop taking the prednisone and start taking ketorolac Medical Decision Making 37 yo female with hx of chronic low back pain, had an MRI done last week showing no spincal cord compression or other emergent findings, does have some disc herniations. She has been on tylenol, muscle relaxers and prednisone without relief. She changed to a new pcp today after she states her old pcp did nothing for her and saw Dr. Thompson who referred her here for eval due to her pain. the pt has been seen here several times recently for this and received IM dilaudid with relief. She localizes the pain to the lower left back with radiation to the left upper thigh similar to her prior pain. She has no urinary retention. She has no saddle anesthesia or abdominal tenderness. I advised that I don't feel comfortable treating this pain with opiates given lack of clinical benefit from this. She has seen pain clinic in the past but states she doesn't see them anymore due to prior disagreements. I do not feel there is an acute pathology requiring workup at this time. I recommended stopping the prednisone and starting nsaids and will prescribe toradol, and based on uptodate recs there is some evidence of duloxetine helping so will start this. She has no abodminal tenderness and states that this pain is similar to her chronic pain so doubt intrabdominal pathology at this time but did advise if she develops abdominal pain rto return to the emergency department on med review pt was already on cymbalta so this was not prescribed Differential Diagnosis lumbar radiculopathy, disc herniations HPI General Mode of arrival: wheelchair . Date/Time Provider Initiated Documentation: 08/04/18 14:48 . Limitations to Documentation: no limitations . Information obtained by: patient and family . History of Present Illness 37 year old F presents to the emergency department with the chief complaint of low back pain, described as severe, Quality is described as aching, and is localized to the back. Patient started experiencing this month(s) (3) and it has been constant. No relieving factors improve symptom(s), No exacerbating factors reported . Patient did receive the following treatments prior to arrival, none Related Data Home Medications Medication Instructions Recorded Confirmed duloxetine [Cymbalta] 2 cap PO DAILY 03/19/15 08/04/18 spironolactone 100 mg PO DAILY 04/23/17 08/04/18 losartan 50 mg PO DAILY 04/26/17 08/04/18 Vaniqa 1 applic TOPICAL BID PRN 02/02/18 08/04/18 Vyvanse 70 mg PO QAM 02/02/18 08/04/18 aluminum chloride [Drysol] 1 DAILY 02/02/18 02/06/18 dextroamphetamine-amphetamine 20 mg PO DAILY PRN 02/02/18 08/04/18 [Adderall] gabapentin 900 mg PO TID PRN 02/02/18 08/04/18 glycopyrrolate 2 mg PO DAILY 02/02/18 08/04/18 Nexplanon 1 implant SUBDERMAL ONCE 05/16/18 08/04/18 diazepam [Valium] 5 mg PO TID PRN #7 tab 07/09/18 08/04/18 acetaminophen [Pain Reliever Extra 1,000 mg PO Q6H PRN #0 tab 08/01/18 08/04/18 Strength] methocarbamol [Robaxin] 1,000 mg PO QID #30 tab 08/01/18 08/04/18 lidocaine [Lidoderm] 1 patch TP DAILY #15 each 08/03/18 08/04/18 ketorolac 10 mg PO Q6H PRN 5 Days #30 tab 08/04/18 Previous Rx's Medication Instructions Recorded diazepam [Valium] 5 mg PO TID PRN #7 tab 07/09/18 acetaminophen [Pain Reliever Extra 1,000 mg PO Q6H PRN #0 tab 08/01/18 Strength] methocarbamol [Robaxin] 1,000 mg PO QID #30 tab 08/01/18 lidocaine [Lidoderm] 1 patch TP DAILY #15 each 08/03/18 ketorolac 10 mg PO Q6H PRN 5 Days #30 tab 08/04/18 Allergies Allergy/AdvReac Type Severity Reaction Status Date / Time codeine AdvReac Mild Hyper Unverified 08/04/18 14:57 General Stated Complaint: Nk/Back Pain CARMEL: 4 Review of Systems Review of Systems All systems reviewed & are unremarkable except as noted in HPI and below Constitutional Denies chills, Denies fever(s) and Denies weakness ENT Denies change in voice Cardiovascular Denies chest pain and Denies dyspnea Respiratory Denies cough and Denies dyspnea Gastrointestinal Denies abdominal pain, Denies nausea and Denies vomiting Integumentary/Breasts Denies rash Neurologic Denies weakness [facility] Medical History Lumbar radiculopathy (Acute) Chronic back pain (Chronic) Depression (Chronic) HTN (hypertension) (Chronic) Hirsutism (Chronic) Lactose intolerance (Chronic) Migraines (Chronic) Obesity (Chronic) Sleep apnea (Chronic) Surgical History discectomy (Chronic) laminectomy (Chronic) History of knee surgery (Inactive) Social History Smoking/Tobacco Use Status: Current every day Alcohol Intake: never Drug use: Rarely Substance use type: marijuana Do you feel safe in your relationship?: Yes Exam Const General: anxious Orientation: alert HENMT Head: normal to inspection Ears: external ears normal General nose exam: external nose normal Mouth: moist mucous membranes Eyes General: appearance normal, both eyes and all related structures Neck Neck: normal visual inspection Resp Effort & Inspection: normal respiratory effort and able to speak in complete sentences Cardio Rate: regular rate Back/Spine/Pelvis Back: no CVA tenderness Skin General skin exam: no rashes or lesions noted Neuro General: alert and oriented x3 Extrem General: normal to inspection Psych Mental Status: mental status grossly normal Course Vital Signs Temperature 37.0 C 08/04/18 14:55 Pulse 79 08/04/18 14:55 Respiratory Rate 16 08/04/18 14:55 Blood Pressure 127/79 08/04/18 14:55 Pulse Oximetry 96 08/04/18 14:55 Temperature 37.0 C 08/04/18 14:55 Temperature Source Skin 08/04/18 14:55 Pulse 79 08/04/18 14:55 Respiratory Rate 16 08/04/18 14:55 Respiratory Effort Non-Labored 08/04/18 14:55 Blood Pressure 127/79 08/04/18 14:55 Blood Pressure Position Supine 08/04/18 14:55 Pulse Oximetry 96 08/04/18 14:55 Pain Level 10 08/04/18 15:12
== END 2018-08-04 15:50 | disposition home or self-care (01) ==
PROVIDERS: Emergency Provider Emergency Medicine; PCP General Practice
DX: M54.16 Radiculopathy, lumbar region (principal); I10 Essential (primary) hypertension
CPT/HCPCS: 99284; J1885

== ENCOUNTER 2018-08-09 15:27 | Emergency (ER) | payer MEDICAID, SELFPAY ==
[2018-08-09 15:29] VITALS: PULSE 81; RESP 20; TEMP 36.8; O2SAT 97
--- NOTE | 2018-08-09 16:08 | NUR.NOTE ---
Nursing Note: Patient hysterical, demanding to be brought in back in a bed, advised the ER was full, offered a reclining recliner. While in triage and setting up recliner, this scribe returned to triage room to find patient sprawled on floor. Requested this patient to come off of the floor and was transferred to recliner. Was able to walk. Transfers to a sitting position without difficulty, twists side to side. States that the only thing that helps her pain is Dilaudid and Diazepam. Shortly after placing in results waiting room in recliner, patient noted to be sprawled on floor at the foot of other patients. Moved to a stretcher for BRICKLAYER HELPER to evaluate. BRICKLAYER HELPER performed assessment with this scribe present in room.
--- NOTE | 2018-08-09 16:31 | DI.CT_ITS ---
SYMPTOM/DIAGNOSIS: BACK PAIN LUMBAR SPINE AND SI JOINT CT: There is no evidence of a fracture. There is no evidence of spondylolisthesis. The patient is status post L 5 and L 4 laminectomy. At L 1-2, there is a mild disc bulge with bilateral facet joint arthropathy and no evidence of spinal stenosis. At L 2-3, there is a mild disc bulge and note made of bilateral facet joint hypertrophy. There is no evidence of spinal stenosis. At L 3-4, disc osteophyte prominence is demonstrated. There is bilateral facet joint hypertrophy and moderate canal stenosis is demonstrated. In addition, severe bilateral neural foraminal stenosis is apparent. At L 4-5, a disc bulge and disc osteophyte complex is demonstrated. There is bilateral facet joint hypertrophy and severe spinal stenosis and severe bilateral foraminal narrowing is evident. At L 5-S 1, a disc bulge is demonstrated. There is bilateral facet joint hypertrophy. There is no evidence of canal stenosis, however there is severe bilateral neural foraminal stenosis. SUMMARY: No acute abnormality is seen. Multi level degenerative disc disease and DJD are evident with neural foraminal narrowing. There is severe bilateral neural foraminal narrowing at L 3-4, L 4-5 and L 5-S 1. Moderate spinal canal stenosis is noted at L 3-4 and L 4-5.
[2018-08-09] MEDS: Ketorolac 60 MG/2 ML VIAL IM (16:40)
[2018-08-09] MEDS: Lidocaine 5% Patch 1 PATCH TP (16:41)
--- NOTE | 2018-08-09 16:44 | ED.GENADUL_ITS ---
Discharge Plan Disposition Patient Disposition: HOME Condition: Stable Discharge Details Chief Complaint: Nk/Back Pain Clinical Impression: Lumbar radiculopathy Primary Care Provider: Edmond Thompson ED Provider: Orville Carver Home Meds and New Rx's Prescriptions: Continued duloxetine [Cymbalta] 60 MG capsule,delayed release(DR/EC) 2 cap PO DAILY RF: 0 losartan 50 MG tablet 50 mg PO DAILY RF: 0 spironolactone 50 MG tablet 100 mg PO DAILY RF: 0 gabapentin 300 mg Capsule 900 mg PO TID PRNRF: 0 glycopyrrolate 2 mg Tablet 2 mg PO DAILY RF: 0 Vaniqa 13.9 % Cream 1 applic TOPICAL BID PRNRF: 0 Vyvanse 70 mg Capsule 70 mg PO QAM RF: 0 aluminum chloride [Drysol] 20 % Solution 1 DAILY RF: 0 dextroamphetamine-amphetamine [Adderall] 20 mg Tablet 20 mg PO DAILY PRNRF: 0 Nexplanon 68 mg Implant 1 implant SUBDERMAL ONCE RF: 0 acetaminophen [Pain Reliever Extra Strength] 500 MG tablet 1,000 mg PO Q6H PRNQty: 0 RF: 0 Discharge Instructions Instructions: Lumbar Radiculopathy (ED), Back Pain (ED) Additional Instructions: Please start the Toradol you were previously prescribed and take as directed for the next 5 days. You should perform very light activity and avoid heavy lifting twisting or bending type motions. Return to the emergency department for any significant change in your symptoms including change in bowel or bladder function, inability to move lower 70s, or further concerns you may have. Otherwise follow-up with your primary care provider after NSAID therapy for reassessment. Referrals: Edmond Thompson MD [Primary Care Provider] - 5 days (call office for follow appt. ) Discharge Data Discharge Date/Time-TO BE ENTERED AT DEPARTURE: 08/09/18 18:23 Medical Decision Making Patient presenting the emergency department for chief complaint of lumbar back pain. Patient states this is been going on for greater than 2 months and denies any specific injury. Patient states some radiation of discomfort down lower legs with more discomfort noted on the right than the left. Patient does state that the only thing that works for her is Dilaudid and Valium . Patient has had multiple emergency department visits even with MRI studies recently within the last month showing some bulging disc and degeneration but no emergent findings. Patient denies any change in bowel or bladder function, fever, other symptoms. Patient was ambulatory on arrival to emergency department but upon arriving to the rear waiting room patient was found on the floor due to not being able to sit appropriate in a chair and then needing a wheelchair. Physical exam shows diffuse lower lumbar tenderness, no paraspinal tenderness, no CVA tenderness, negative straight leg raise bilateral, slight decreased patellar reflexes equal bilateral but no change in Achilles reflexes, distal sensation intact and patient was noted to be weightbearing upon arrival. After thorough evaluation I see no signs of cauda equina, epidural abscess, or any central cord compression. Patient has had multiple work-ups in emergency department visits for similar symptoms. I am concerned for possible drug- seeking behavior. When bringing up this possibility of patient patient moves rapidly around bed sits up and states she wants to leave. There were no acute or significant signs of distress during this. Patient was offered a CT scan given I do not see in one done recently but given her significant severe persistent pain I do feel that it can show any other abnormalities that may have been previously missed. Patient was informed that she would get ketorolac and lidocaine patch while in the emergency department but given my concerns that she would not be getting any narcotic pain medication nor benzodiazepine. After arguing with her mother she finally agreed to this plan. Reviewed CT imaging that shows no acute findings but does show ongoing degenerative disease.. Given no worrisome physical exam findings and no report of emergent back pain diagnoses I feel that patient can safely be discharged. Did inform patient that she should follow-up with pain clinic and primary care especially given that this is been going on now for months without any improvement of symptoms and no emergent diagnosis. Return precautions were discussed. At time of discharge patient states that she had 5 days of Toradol left from previous visit. Reviewed previous visit notes and there was only one prescription for Toradol given and that patient would not have taken any of this medication if she continued to have 5 days of medication left. Did also discuss with patient possible steroid use but informed her that this may or may not help her and have serious side effects. Patient states that she also had multiple days of steroids but due to her not starting them. Again by being prescribed medications and not taking them and coming to the emergency department only requesting controlled substances this is concerning for seeking behavior. Patient was informed that she should start the Toradol and take as prescribed by previous provider but not to take Toradol and steroids at the same time given significant concern of GI upset/side effects. After discussion of diagnosis and plan of care patient and mother have no further needs, questions, or concerns and states clear understanding to return to the emergency department for any worsening symptoms. HPI General Mode of arrival: ambulatory . Date/Time Provider Initiated Documentation: 08/09/18 15:33 . Limitations to Documentation: no limitations . Information obtained by: patient and family . History of Present Illness 37 year old F presents to the emergency department with the chief complaint of back pain, described as severe and similar to prior episodes, with intensity rated at 10. Quality is described as sharp, and is localized to the back. Patient extremity and distal. Patient started experiencing this month(s) (2.5) and it has been constant. No relieving factors improve symptom(s), Movement worsens symptoms . Patient notes no other symptoms.. Related Data Home Medications Medication Instructions Recorded Confirmed duloxetine [Cymbalta] 2 cap PO DAILY 03/19/15 08/09/18 spironolactone 100 mg PO DAILY 04/23/17 08/09/18 losartan 50 mg PO DAILY 04/26/17 08/09/18 Vaniqa 1 applic TOPICAL BID PRN 02/02/18 08/09/18 Vyvanse 70 mg PO QAM 02/02/18 08/09/18 aluminum chloride [Drysol] 1 DAILY 02/02/18 02/06/18 dextroamphetamine-amphetamine 20 mg PO DAILY PRN 02/02/18 08/09/18 [Adderall] gabapentin 900 mg PO TID PRN 02/02/18 08/09/18 glycopyrrolate 2 mg PO DAILY 02/02/18 08/09/18 Nexplanon 1 implant SUBDERMAL ONCE 05/16/18 08/09/18 acetaminophen [Pain Reliever Extra 1,000 mg PO Q6H PRN #0 tab 08/01/18 08/09/18 Strength] Previous Rx's Medication Instructions Recorded acetaminophen [Pain Reliever Extra 1,000 mg PO Q6H PRN #0 tab 08/01/18 Strength] Allergies Allergy/AdvReac Type Severity Reaction Status Date / Time codeine AdvReac Mild Hyper Unverified 08/09/18 15:31 General Stated Complaint: Nk/Back Pain CARMEL: 3 Review of Systems Constitutional Denies fever(s) ENT Denies neck pain Cardiovascular Denies chest pain and Denies dyspnea on exertion Respiratory Denies cough and Denies dyspnea on exertion Gastrointestinal Denies abdominal pain, Denies change in bowel habits, Denies diarrhea, Denies nausea and Denies vomiting Genitourinary Denies difficulty voiding and Denies urinary incontinence Musculoskeletal Reports as per HPI, Reports back pain, Denies neck pain and Reports radiating pain into limb Neurologic Denies sensory deficit PFSH Medical History Lumbar radiculopathy (Acute) Chronic back pain (Chronic) Depression (Chronic) HTN (hypertension) (Chronic) Hirsutism (Chronic) Lactose intolerance (Chronic) Migraines (Chronic) Obesity (Chronic) Sleep apnea (Chronic) Surgical History discectomy (Chronic) laminectomy (Chronic) History of knee surgery (Inactive) Social History Smoking/Tobacco Use Status: Current every day Alcohol Intake: never Drug use: Rarely Substance use type: marijuana Do you feel safe in your relationship?: Yes Exam Const General: anxious Nutritional Appearance: overweight Orientation: alert, awake and oriented x3 Neck Neck: normal visual inspection, full ROM and no meningeal signs Resp Effort & Inspection: normal respiratory effort Auscultation: clear to auscultation bilaterally Cardio Rate: regular rate Rhythm: regular rhythm Heart Sounds: S1 normal and S2 normal Back/Spine/Pelvis Back: no CVA tenderness Thoracic/Lumbar Spine: straight leg raise negative bilaterally, pain with thoraco-lumbar ROM, No paraspinal tenderness, thoraco-lumbar ROM limited, No thoracic spinal tenderness and lumbar spinal tenderness Pelvis: no pain with anterior-posterior compression, no pain with lateral compression, no buttock ecchymosis, no buttock tenderness, no buttock swelling and sciatic notch tenderness on the right Neuro General: alert, awake and oriented x3 Cognition: normal cognition Speech: speech normal Gait: antalgic Motor: muscle tone normal throughout DTR's: Rt Patellar: 0, Lt Patellar: 0, Rt Ankle: 2+ and Lt Ankle: 2+ Extrem Right lower extremity: hip/thigh Details: normal to inspection, knee Details: normal to inspection and lower leg Details: normal to inspection Course Vital Signs Temperature 36.8 C 08/09/18 15:29 Pulse 81 08/09/18 15:29 Respiratory Rate 20 08/09/18 15:29 Pulse Oximetry 97 08/09/18 15:29 Temperature 36.8 C 08/09/18 15:29 Temperature Source Temporal Artery Scan 08/09/18 15:29 Pulse 81 08/09/18 15:29 Respiratory Rate 20 08/09/18 15:29 Respiratory Effort Non-Labored 08/09/18 15:29 Pulse Oximetry 97 08/09/18 15:29 Oxygen Delivery Method Room Air 08/09/18 15:29 Oxygen Flow Rate 0 08/09/18 15:29 Pain Level 10 08/09/18 16:07
--- NOTE | 2018-08-09 17:39 | DI.VRAD_ITS ---
EXAM: CT Lumbar Spine Without Contrast EXAM DATE/TIME: 08/09/2018 4:32 PM CLINICAL HISTORY: 37 years old, female; Signs and symptoms; Other: Back pain; Prior surgery; Surgery date: 6+ months; Surgery type: S/P laminectomy x 2 TECHNIQUE: Imaging protocol: Axial computed tomography images of the lumbar spine without intravenous contrast. Coronal and sagittal reformatted images were created and reviewed. Radiation optimization: All CT scans at this facility use at least one of these dose optimization techniques: automated exposure control; mA and/or kV adjustment per patient size (includes targeted exams where dose is matched to clinical indication); or iterative reconstruction. COMPARISON: CT LUMBAR SPINE WITHOUT CONTRAST 12/13/2011 6:20 PM FINDINGS: Vertebrae: No acute fracture. No spondylolisthesis. Status post laminectomy at the L5 and L4. Discs/Spinal canal/Neural foramina: Multilevel degenerative disc disease. L1-L2: Mild disc bulge. Bilateral facet arthropathy. No spinal canal stenosis. No neural foramina narrowing. L2-L3: Mild disc bulge. Bilateral facet hypertrophy. No spinal canal stenosis. No neuroforaminal narrowing. L3-L4: Disc osteophyte complex. The bilateral facet hypertrophy. The moderate spinal canal stenosis. Severe bilateral neural foramina narrowing. L4-L5: Disc bulge with disc osteophyte complex. Bilateral facet hypertrophy. Severe spinal canal stenosis. Severe bilateral neural foramina narrowing. L5-S1: Disc bulge. Bilateral facet atrophy. No spinal canal stenosis. Severe bilateral neural foramina narrowing. Soft tissues: Unremarkable. IMPRESSION: No acute abnormality. Multilevel degenerative disc disease with neural foramina narrowing. Severe bilateral neural foramina narrowing at L3-L4, L4-L5 and L5-S1. Moderate spinal canal stenosis at L3-L4 and severe L4-L5. Dictated and Authenticated by: Cristobal Baum MD. Ordering:MELISSA Jacinto MD
[2018-08-09 18:07] VITALS: BP 129/84; PULSE 67; RESP 16; TEMP 36.8; O2SAT 98
--- NOTE | 2018-08-10 09:38 | NUR.NOTE ---
Nursing Note: Referral faxed to Dr. Thompson's office. Elvira Salas.
== END 2018-08-09 18:23 | disposition home or self-care (01) ==
PROVIDERS: Emergency Provider Nurse Practitioner Family; PCP General Practice
DX: M54.16 Radiculopathy, lumbar region (principal); I10 Essential (primary) hypertension
CPT/HCPCS: 81025; 96372; 99284; 72131; J1885

== ENCOUNTER 2018-08-29 18:16 | Emergency (ER) | payer MEDICAID, SELFPAY ==
[2018-08-29 18:24] VITALS: BP 139/107; PULSE 92; RESP 16; TEMP 36.6; O2SAT 99
--- NOTE | 2018-08-29 18:31 | W.ED.GENAD ---
Discharge Plan Disposition Patient Disposition: HOME Condition: Fair Discharge Details Chief Complaint: Orthopedic Clinical Impression: Contusion of foot Primary Care Provider: Edmond Thompson ED Provider: Maribel Montes Home Meds and New Rx's Prescriptions: Continued duloxetine [Cymbalta] 60 MG capsule,delayed release(DR/EC) 2 cap PO DAILY RF: 0 losartan 50 MG tablet 50 mg PO DAILY RF: 0 spironolactone 50 MG tablet 100 mg PO DAILY RF: 0 gabapentin 300 mg Capsule 900 mg PO TID PRNRF: 0 glycopyrrolate 2 mg Tablet 2 mg PO DAILY RF: 0 Vaniqa 13.9 % Cream 1 applic TOPICAL BID PRNRF: 0 Vyvanse 70 mg Capsule 70 mg PO QAM RF: 0 aluminum chloride [Drysol] 20 % Solution 1 applic topical DAILY RF: 0 dextroamphetamine-amphetamine [Adderall] 20 mg Tablet 20 mg PO DAILY PRNRF: 0 Nexplanon 68 mg Implant 1 implant SUBDERMAL ONCE RF: 0 acetaminophen [Pain Reliever Extra Strength] 500 MG tablet 1,000 mg PO Q6H PRNQty: 0 RF: 0 Discharge Instructions Instructions: Foot Contusion (ED) Additional Instructions: Encourage rest, ice, elevation. Use postoperative shoe to help immobilize the foot and continue with your brace to help your foot drop. Use crutches or knee walker to help with ambulation. Tylenol and ibuprofen as needed for discomfort. Your x-ray does not reveal any evidence of fracture or dislocation You will need follow-up with neurology for your foot drop that is leading you to have these injuries. I have asked our direct care staffer help facilitate follow-up with neurology. Number is listed below should you have any questions. You also need follow-up with orthopedics for your foot trauma. Please call your orthopedic surgeon in [facility] tomorrow to schedule follow-up appointment. If you develop new or worsening symptoms please seek care urgently once again. Referrals: Edmond Thompson MD [Primary Care Provider] - Chloe Singh MD [ [facility] STAFF PHYSICIAN] - Discharge Data Discharge Date/Time-TO BE ENTERED AT DEPARTURE: 08/29/18 21:07 Medical Decision Making Patient is a 37 year old female presenting today for evaluation of left foot pain. States that prior to arrival she was seen at chiropractor, misstepped when coming out and suffered rotational injury to left foot/ankle. Patient has chronic left foot drop with a notable inversion drift. Patiet states that this is typical and unchanged. She has swelling, ecchymosis and pain over the proximal 5th metatarsal. No focal pain about the ankle. Plan to obtain XR to evaluate for fracture. Will give Tylenol and Ibuprofen. She is resting, icing and elevating currently. FINDINGS: Bones/joints: Osseous anatomic alignment is well preserved. No acutely displaced fracture or dislocation. Joint spaces are well preserved. Soft tissues: Mild soft tissue swelling of the lateral aspect of the foot. IMPRESSION: Negative for acute skeletal pathology. Discussed these findings with the patient. While she does have no bony ab normality noted at this time, plan to place the patient in postoperative shoe. She will continue with the brace typically for her foot drop. Patient was advised to follow-up with a neurologist but has not been able to get in thus far. I will ask our care according to help facilitate this for her foot drop. All the foot drop is not an acute issue, it is what led to the injury today and will likely continue to be problematic for the patient as she is having such difficulty with ambulation. She reports she has had multiple MRIs and has been evaluated by neurosurgeon who completed her spine surgery last year. Neurosurgeon does not feel that the foot drop is stemming from any spine related issue. Patient does have an orthopedic physician that she sees typically and will follow up with them regarding her orthopedic issues with her foot. She was given strict return precautions. We discussed new/worsening symptoms when to seek care urgently once again. All the presence of concerns were addressed and she is in agreement this plan. Patient has crutches at home that she will use. She will rest, ice and elevate HPI General Mode of arrival: wheelchair. Date/Time Provider Initiated Documentation: 08/29/18 18:30. Limitations to Documentation: no limitations. Information obtained by: patient and RN notes reviewed. History of Present Illness 37 year old F presents to the emergency department with the chief complaint of left foot pain, described as moderate, with intensity rated at 8. Quality is described as stabbing, and is localized to the left and lower extremity. Patient reports no radiation. Patient started experiencing this minute(s) and it has been constant. Immobilization improves symptom(s), Movement worsens symptoms (weight bearing) . Patient notes no other symptoms.. Patient did receive the following treatments prior to arrival, cold therapy Related Data Home Medications Medication Instructions Recorded Confirmed duloxetine [Cymbalta] 2 cap PO DAILY 03/19/15 08/29/18 spironolactone 100 mg PO DAILY 04/23/17 08/29/18 losartan 50 mg PO DAILY 04/26/17 08/29/18 Vaniqa 1 applic TOPICAL BID PRN 02/02/18 08/29/18 Vyvanse 70 mg PO QAM 02/02/18 08/29/18 aluminum chloride [Drysol] 1 applic TOPICAL DAILY 02/02/18 08/29/18 dextroamphetamine-amphetamine 20 mg PO DAILY PRN 02/02/18 08/29/18 [Adderall] gabapentin 900 mg PO TID PRN 02/02/18 08/29/18 glycopyrrolate 2 mg PO DAILY 02/02/18 08/29/18 Nexplanon 1 implant SUBDERMAL ONCE 05/16/18 08/29/18 acetaminophen [Pain Reliever Extra 1,000 mg PO Q6H PRN #0 tab 08/01/18 08/29/18 Strength] Previous Rx's Medication Instructions Recorded acetaminophen [Pain Reliever Extra 1,000 mg PO Q6H PRN #0 tab 08/01/18 Strength] Allergies Allergy/AdvReac Type Severity Reaction Status Date / Time codeine AdvReac Mild Hyper Unverified 08/29/18 18:30 General Stated Complaint: Orthopedic CARMEL: 4 Review of Systems Constitutional Reports as per HPI, Denies chills, Denies fever(s), Denies headache(s) and Denies weakness ENT Denies headache(s) Cardiovascular Reports as per HPI Respiratory Reports as per HPI and Denies cough Musculoskeletal Reports as per HPI and Denies tingling Integumentary/Breasts Reports as per HPI, Denies rash, Denies wounds and Reports other (notes ecchymosis over area of discomfort) Neurologic Reports as per HPI, Denies headache(s), Denies tingling, Denies paresthesias and Denies weakness [facility] Medical History GERD (gastroesophageal reflux disease) (Chronic) ADHD (Acute) Lumbar radiculopathy (Acute) Depression (Chronic) Hirsutism (Chronic) HTN (hypertension) (Chronic) Chronic back pain (Chronic) Lactose intolerance (Chronic) Migraines (Chronic) Obesity (Chronic) Sleep apnea (Chronic) Surgical History discectomy (Chronic) laminectomy (Chronic) History of knee surgery (Inactive) Social History Smoking/Tobacco Use Status: Current every day Tobacco Type: cigarettes Alcohol Intake: never Drug use: Daily Substance use type: marijuana Do you feel safe at home: Yes Do you feel safe in your relationship?: Yes Exam Const General: cooperative, healthy appearing, comfortable, no acute distress, well developed and well groomed Nutritional Appearance: average body habitus and well nourished Orientation: alert and awake Resp Effort & Inspection: normal respiratory effort, able to speak in complete sentences and no respiratory distress Cardio Rate: regular rate Rhythm: regular rhythm Skin General skin exam: no rashes or lesions noted Lesions: no lesions Rashes: no rashes Trauma: no lacerations or abrasions Neuro General: alert and awake Cognition: normal cognition Speech: speech normal Gait: gait abnormal (patient in wheelchair) Motor: muscle tone normal throughout Sensory Exam: no sensory deficits noted Extrem Left lower extremity: normal capillary refill, lower leg Details: normal to inspection, ankle Details: swelling Details: laterally and no edema; ROM abnormal (limited, pain in proximal 5th metatarsal with movement), no warmth, no abrasions, no lacerations, no ecchymosis, no crepitus and achilles tendon exam normal and foot Details: normal capillary refill, tenderness Location: of the dorsal foot Location: distally and laterally and of the lateral foot (pain, ecchymosis and swelling) Location: at the base of the 5th metatarsal, ecchymosis and vascular exam Details: dorsalis pedis pulse present and normal capillary refill; no unusual warmth, no abrasions and no lacerations; no edema Psych Appearance: grossly normal and well kempt Mental Status: mental status grossly normal Speech and Movement: speech and movement normal Course Vital Signs Temperature 36.6 C 08/29/18 18:24 Pulse 92 H 08/29/18 18:24 Respiratory Rate 16 08/29/18 18:24 Blood Pressure 139/107 H 08/29/18 18:24 Pulse Oximetry 99 08/29/18 18:24 Temperature 36.6 C 08/29/18 18:24 Temperature Source Skin 08/29/18 18:24 Pulse 92 H 08/29/18 18:24 Respiratory Rate 16 08/29/18 18:24 Respiratory Effort Non-Labored 08/29/18 18:29 Blood Pressure 139/107 H 08/29/18 18:24 Blood Pressure Position Sitting 08/29/18 18:24 Pulse Oximetry 99 08/29/18 18:24 Pain Level 8 08/29/18 18:24
--- NOTE | 2018-08-29 19:06 | ED.GENADUL_ITS ---
Discharge Plan Disposition Patient Disposition: HOME Condition: Fair Discharge Details Chief Complaint: Orthopedic Clinical Impression: Contusion of foot Primary Care Provider: Edmond Thompson ED Provider: Maribel Montes Home Meds and New Rx's Prescriptions: Continued duloxetine [Cymbalta] 60 MG capsule,delayed release(DR/EC) 2 cap PO DAILY RF: 0 losartan 50 MG tablet 50 mg PO DAILY RF: 0 spironolactone 50 MG tablet 100 mg PO DAILY RF: 0 gabapentin 300 mg Capsule 900 mg PO TID PRNRF: 0 glycopyrrolate 2 mg Tablet 2 mg PO DAILY RF: 0 Vaniqa 13.9 % Cream 1 applic TOPICAL BID PRNRF: 0 Vyvanse 70 mg Capsule 70 mg PO QAM RF: 0 aluminum chloride [Drysol] 20 % Solution 1 applic topical DAILY RF: 0 dextroamphetamine-amphetamine [Adderall] 20 mg Tablet 20 mg PO DAILY PRNRF: 0 Nexplanon 68 mg Implant 1 implant SUBDERMAL ONCE RF: 0 acetaminophen [Pain Reliever Extra Strength] 500 MG tablet 1,000 mg PO Q6H PRNQty: 0 RF: 0 Discharge Instructions Instructions: Foot Contusion (ED) Additional Instructions: Encourage rest, ice, elevation. Use postoperative shoe to help immobilize the foot and continue with your brace to help your foot drop. Use crutches or knee walker to help with ambulation. Tylenol and ibuprofen as needed for discomfort. Your x-ray does not reveal any evidence of fracture or dislocation You will need follow-up with neurology for your foot drop that is leading you to have these injuries. I have asked our animal daycare provider help facilitate follow- up with neurology. Number is listed below should you have any questions. You also need follow-up with orthopedics for your foot trauma. Please call your orthopedic surgeon in [facility] tomorrow to schedule follow-up appointment. If you develop new or worsening symptoms please seek care urgently once again. Referrals: Edmond Thompson MD [Primary Care Provider] - Chloe Singh MD [ [facility] STAFF PHYSICIAN] - Discharge Data Discharge Date/Time-TO BE ENTERED AT DEPARTURE: 08/29/18 21:07 Medical Decision Making Patient is a 37 year old female presenting today for evaluation of left foot luz n. States that prior to arrival she was seen at chiropractor, misstepped when coming out and suffered rotational injury to left foot/ankle. Patient has chronic left foot drop with a notable inversion drift. Patiet states that this is typical and unchanged. She has swelling, ecchymosis and pain over the proximal 5th metatarsal. No focal pain about the ankle. Plan to obtain XR to evaluate for fracture. Will give Tylenol and Ibuprofen. She is resting, icing and elevating currently. FINDINGS: Bones/joints: Osseous anatomic alignment is well preserved. No acutely displaced fracture or dislocation. Joint spaces are well preserved. Soft tissues: Mild soft tissue swelling of the lateral aspect of the foot. IMPRESSION: Negative for acute skeletal pathology. Discussed these findings with the patient. While she does have no bony ab normality noted at this time, plan to place the patient in postoperative shoe. She will continue with the brace typically for her foot drop. Patient was advised to follow-up with a neurologist but has not been able to get in thus far. I will ask our care according to help facilitate this for her foot drop. All the foot drop is not an acute issue, it is what led to the injury today and will likely continue to be problematic for the patient as she is having such difficulty with ambulation. She reports she has had multiple MRIs and has been evaluated by neurosurgeon who completed her spine surgery last year. Neurosurgeon does not feel that the foot drop is stemming from any spine related issue. Patient does have an orthopedic physician that she sees typically and will follow up with them regarding her orthopedic issues with her foot. She was given strict return precautions. We discussed new/worsening symptoms when to seek care urgently once again. All the presence of concerns were addressed and she is in agreement this plan. Patient has crutches at home that she will use. She will rest, ice and elevate HPI General Mode of arrival: wheelchair . Date/Time Provider Initiated Documentation: 08/29/18 18:30 . Limitations to Documentation: no limitations . Information obtained by: patient and RN notes reviewed . History of Present Illness 37 year old F presents to the emergency department with the chief complaint of left foot pain, described as moderate, with intensity rated at 8. Quality is described as stabbing, and is localized to the left and lower extremity. Patient reports no radiation. Patient started experiencing this minute(s) and it has been constant. Immobilization improves symptom(s), Movement worsens symptoms (weight bearing) . Patient notes no other symptoms.. Patient did receive the following treatments prior to arrival, cold therapy Related Data Home Medications Medication Instructions Recorded Confirmed duloxetine [Cymbalta] 2 cap PO DAILY 03/19/15 08/29/18 spironolactone 100 mg PO DAILY 04/23/17 08/29/18 losartan 50 mg PO DAILY 04/26/17 08/29/18 Vaniqa 1 applic TOPICAL BID PRN 02/02/18 08/29/18 Vyvanse 70 mg PO QAM 02/02/18 08/29/18 aluminum chloride [Drysol] 1 applic TOPICAL DAILY 02/02/18 08/29/18 dextroamphetamine-amphetamine 20 mg PO DAILY PRN 02/02/18 08/29/18 [Adderall] gabapentin 900 mg PO TID PRN 02/02/18 08/29/18 glycopyrrolate 2 mg PO DAILY 02/02/18 08/29/18 Nexplanon 1 implant SUBDERMAL ONCE 05/16/18 08/29/18 acetaminophen [Pain Reliever Extra 1,000 mg PO Q6H PRN #0 tab 08/01/18 08/29/18 Strength] Previous Rx's Medication Instructions Recorded acetaminophen [Pain Reliever Extra 1,000 mg PO Q6H PRN #0 tab 08/01/18 Strength] Allergies Allergy/AdvReac Type Severity Reaction Status Date / Time codeine AdvReac Mild Hyper Unverified 08/29/18 18:30 General Stated Complaint: Orthopedic CARMEL: 4 Review of Systems Constitutional Reports as per HPI, Denies chills, Denies fever(s), Denies headache(s) and Denies weakness ENT Denies headache(s) Cardiovascular Reports as per HPI Respiratory Reports as per HPI and Denies cough Musculoskeletal Reports as per HPI and Denies tingling Integumentary/Breasts Reports as per HPI, Denies rash, Denies wounds and Reports other (notes ecchymosis over area of discomfort) Neurologic Reports as per HPI, Denies headache(s), Denies tingling, Denies paresthesias and Denies weakness [facility] Medical History GERD (gastroesophageal reflux disease) (Chronic) ADHD (Acute) Lumbar radiculopathy (Acute) Depression (Chronic) Hirsutism (Chronic) HTN (hypertension) (Chronic) Chronic back pain (Chronic) Lactose intolerance (Chronic) Migraines (Chronic) Obesity (Chronic) Sleep apnea (Chronic) Surgical History discectomy (Chronic) laminectomy (Chronic) History of knee surgery (Inactive) Social History Smoking/Tobacco Use Status: Current every day Tobacco Type: cigarettes Alcohol Intake: never Drug use: Daily Substance use type: marijuana Do you feel safe at home: Yes Do you feel safe in your relationship?: Yes Exam Const General: cooperative, healthy appearing, comfortable, no acute distress, well developed and well groomed Nutritional Appearance: average body habitus and well nourished Orientation: alert and awake Resp Effort & Inspection: normal respiratory effort, able to speak in complete sentences and no respiratory distress Cardio Rate: regular rate Rhythm: regular rhythm Skin General skin exam: no rashes or lesions noted Lesions: no lesions Rashes: no rashes Trauma: no lacerations or abrasions Neuro General: alert and awake Cognition: normal cognition Speech: speech normal Gait: gait abnormal (patient in wheelchair) Motor: muscle tone normal throughout Sensory Exam: no sensory deficits noted Extrem Left lower extremity: normal capillary refill, lower leg Details: normal to inspection, ankle Details: swelling Details: laterally and no edema; ROM abnormal (limited, pain in proximal 5th metatarsal with movement), no warmth, no abrasions, no lacerations, no ecchymosis, no crepitus and achilles tendon exam normal and foot Details: normal capillary refill, tenderness Location: of the dorsal foot Location: distally and laterally and of the lateral foot (pain, ecchymosis and swelling) Location: at the base of the 5th metatarsal, ecchymosis and vascular exam Details: dorsalis pedis pulse present and normal capillary refill; no unusual warmth, no abrasions and no lacerations; no edema Psych Appearance: grossly normal and well kempt Mental Status: mental status grossly normal Speech and Movement: speech and movement normal Course Vital Signs Temperature 36.6 C 08/29/18 18:24 Pulse 92 H 08/29/18 18:24 Respiratory Rate 16 08/29/18 18:24 Blood Pressure 139/107 H 05/14/19 18:24 Pulse Oximetry 99 08/29/18 18:24 Temperature 36.6 C 08/29/18 18:24 Temperature Source Skin 08/29/18 18:24 Pulse 92 H 08/29/18 18:24 Respiratory Rate 16 08/29/18 18:24 Respiratory Effort Non-Labored 08/29/18 18:29 Blood Pressure 139/107 H 08/29/18 18:24 Blood Pressure Position Sitting 08/29/18 18:24 Pulse Oximetry 99 08/29/18 18:24 Pain Level 8 08/29/18 18:24
--- NOTE | 2018-08-29 19:25 | DI.RAD_ITS ---
SYMPTOMS/DIAGNOSIS: TRAUMA, PROXIMAL 5TH METATARSAL PAIN, SWELLING LEFT FOOT: Three views were obtained. There is prominent osteophyte of the site of attachment of the Achilles tendon on the calcaneus. No fracture is seen.
[2018-08-29] MEDS: Acetaminophen 325 MG TAB 650 MG PO (19:28)
[2018-08-29] MEDS: Ibuprofen 600 MG TAB PO (19:30)
--- NOTE | 2018-08-29 19:41 | DI.VRAD_ITS ---
EXAM: XR Left Foot Complete, 3 or more Views EXAM DATE/TIME: 08/29/2018 6:42 PM CLINICAL HISTORY: 37 years old, female; Foot; Left; Patient HX: Prox 5th metatarsal pain after fall, swelling TECHNIQUE: Imaging protocol: XR Left foot. Views: 3 or more views. COMPARISON: CR XR ANKLE LT COMPLETE 05/16/2018 5:34 AM FINDINGS: Bones/joints: Osseous anatomic alignment is well preserved. No acutely displaced fracture or dislocation. Joint spaces are well preserved. Soft tissues: Mild soft tissue swelling of the lateral aspect of the foot. IMPRESSION: Negative for acute skeletal pathology. Dictated and Authenticated by: Uzair Sauer MD. Ordering:PEDRITO López MD
--- NOTE | 2018-08-30 08:13 | PDOC.ERCMPRO ---
Care Management Progress Note 08/30-Maribel HARDING requested assistance with a neurology f/u within two weeks for left food drop. Referral faxed to neurology this am.
== END 2018-08-29 21:07 | disposition home or self-care (01) ==
PROVIDERS: Emergency Provider Physician Assistant; PCP General Practice
DX: S90.32XA Contusion of left foot, initial encounter (principal); W18.49XA Other slipping, tripping and stumbling without falling, initial encounter
CPT/HCPCS: 29515; 99283; 73630; 99282

== ENCOUNTER 2018-11-06 09:45 | Outpatient (REF) | payer MEDICAID, SELFPAY ==
--- NOTE | 2018-11-06 | PAPFT_PTH ---
PATIENT: Milly Gonsalves LOC: [facility] U#:[id number] AGE/SX: 38/F ROOM: RE11/06/[address]: Aparna Boyce APRN : 1980 BED: DIS: 11/06/2018 SPEC #: [id number] RECD: 11/06/18 12:08 STATUS: TANIA DEGROOT #: [id number] MARISOL: 11/06/18 00:[address]: Aparna Boyce DEPT: [facility] Cytology RECD BY: Cari Cavazos Tissues: 1 - CX/ENDOCX FOR PAP SMEARS Procedures: PAP THIN PREP/UVM Screening HPV DNA PROBE Comments: [id number]
== END 2018-11-06 10:05 ==
LOC: LBN 09:45
PROVIDERS: PCP Nurse Practitioner Adult Health; Visit Provider Nurse Practitioner Adult Health
DX: Z12.4 Encounter for screening for malignant neoplasm of cervix (principal); Z11.51 Encounter for screening for human papillomavirus (HPV)
CPT/HCPCS: 88142; 87624

== ENCOUNTER 2019-01-12 10:30 | Outpatient (CLI) | payer MEDICAID, SELFPAY ==
[2019-01-12 12:18] LABS: ALT 34 U/L (14-59); AST 20 U/L (15-37); Albumin 4.3 g/dL (3.4-5.0); Alkaline Phosphatase 55 U/L (46-116); Anion Gap 9.8 mmol/L (3-11); BUN 11 mg/dL (7-18); Bilirubin, Total 0.5 mg/dL (0.2-1.0); CO2 26.2 mmol/L (21.0-32.0); CREATININE 0.86 mg/dL (0.55-1.02); Calcium 9.1 mg/dL (8.5-10.1); Chloride 105 mmol/L (98-107); Glucose 86 mg/dL (70-100); Potassium 4.5 mmol/L (3.5-5.1); Sodium 141 mmol/L (136-145); Total Protein 7.6 g/dL (6.4-8.2)
[2019-01-12 13:28] LABS: ESR 12 mm/hr (0-20)
[2019-01-15 10:44] LABS: Lyme Ab w Rflx to Lyme Confirm Negative
[2019-01-15 16:44] LABS: Anaplasma phagocytophilum Negative (Negative); B. miyamotoi PCR Negative (Negative); Babesia divergens/MO-1 Negative (Negative); Babesia duncani Negative (Negative); Babesia microti Negative (Negative); Ehrlichia chaffeensis Negative (Negative); Ehrlichia ewingii/canis Negative (Negative); Ehrlichia muris eauclairensis Negative (Negative)
== END 2019-01-12 10:50 ==
PROVIDERS: PCP Nurse Practitioner Adult Health; Visit Provider Nurse Practitioner Adult Health
DX: M25.50 Pain in unspecified joint (principal); W57.XXXA Bitten or stung by nonvenomous insect and other nonvenomous arthropods, initial encounter; T14.8XXA Other injury of unspecified body region, initial encounter
CPT/HCPCS: 36415; 80053; 85652; 87798; 86618

== ENCOUNTER 2019-11-26 01:38 | Outpatient (CLI) | payer MEDICAID, SELFPAY ==
--- NOTE | 2019-11-26 08:15 | DI.MRI_ITS ---
EXAM: MR LUMBAR SPINE WO CLINICAL HISTORY: New/recurrent disc herniation? L4-5, L5-S1?,H/O LAMINECTOMY,BOWEL HABIT. TECHNIQUE: Multiplanar multisequence MRI of the Lumbar spine was performed. COMPARISON: MR MR lumbar spine wo from 06/22/2018 MR MR lumbar spine w from 07/21/2018 FINDINGS: Bones: The last intervertebral disc space is designated the L5/S1 level for the numbering purpose of this examination. The vertebral body heights are well maintained. Alignment is satisfactory. The si gnal characteristics are unremarkable. There is an L4 laminectomy. Cord: The conus tip ends at the L1 level. It is of normal size and signal intensity. T12-L1: No disc herniations or bulges are present. No central spinal canal or neural foraminal stenos is. L1-2: No disc herniations or bulges are present. No central spinal canal or neural foraminal stenosis . L2-3: No disc herniations or bulges are present. No central spinal canal or neural foraminal stenosis . L3-4: There is a stable extruded disc centrally at L3-L4. Stable nerve root compression and central spinal canal narrowing is noted. Stable mild bilateral neural foraminal narrowing is present. L4-5: There is a large left paracentral disc herniation. It causes left lateral recess stenosis comp ressing the left L5 nerve root. There are degenerative changes of the facets. There is stable moder ate central spinal canal stenosis. Stable neural foraminal narrowing is present. L5-S1: There is a new large left paracentral disc herniation causing left lateral recess stenosis and compressing the left S1 nerve root. Degenerative changes of the facets are present. These all cont ribute to cause mild narrowing of the central spinal canal. No right neural foraminal stenosis is pr esent. There is [id number] left neural foraminal stenosis. Soft tissues: The visualized SI joints and sacrum are well maintained. The paraspinal soft tissues ar e unremarkable. IMPRESSION: 1. New large left paracentral disc herniation causing left lateral recess stenosis at L5-S1. There i s compression of the left S1 nerve root. 2. Stable L3-4 and L4-5 disc herniations and central spinal canal and neural foraminal stenosis as de scribed above. 3. Postsurgical changes in the lumbar spine. 4. Multilevel degenerative changes. DATA REPOSITORY:
== END 2019-11-26 01:58 ==
PROVIDERS: PCP Nurse Practitioner Adult Health; Visit Provider Nurse Practitioner Adult Health
DX: M51.27 Other intervertebral disc displacement, lumbosacral region (principal); M51.26 Other intervertebral disc displacement, lumbar region; M48.061 Spinal stenosis, lumbar region without neurogenic claudication
CPT/HCPCS: 72148

== ENCOUNTER 2020-03-20 10:19 | Outpatient (CLI) | payer MEDICAID, SELFPAY ==
[2020-03-22 17:01] LABS: COVID-19 RT-PCR Result NEGATIVE (Negative)
== END 2020-03-20 10:39 ==
PROVIDERS: PCP Nurse Practitioner Adult Health; Visit Provider Nurse Practitioner Adult Health
DX: R50.9 Fever, unspecified (principal); M79.10 Myalgia, unspecified site
CPT/HCPCS: U0003

== ENCOUNTER 2020-06-18 04:19 | Outpatient (CLI) | payer MEDICAID, SELFPAY ==
[2020-06-18 13:13] LABS: HCT 43.3 % (36.0-46.0); HGB 14.8 g/dL (11.2-15.7); MCH 32.2 pg (27.0-33.0); MCHC 34.2 % (32.0-36.0); MCV 94.3 fL (80-95); MPV 9.6 fL (8.0-11.0); Platelet Count 354 10^3/uL (130-400); RBC 4.59 10^6/uL (3.93-5.22); RDW 11.4 % (11.7-14.6); RDW-SD 39.2 fL; WBC 9.44 10^3/uL (4.4-10.8)
[2020-06-18 14:08] LABS: ALT 31 U/L (14-59); AST 19 U/L (15-37); Albumin 4.7 g/dL (3.4-5.0); Alkaline Phosphatase 74 U/L (46-116); Anion Gap 10.1 mmol/L (3-11); BUN 16 mg/dL (7-18); Bilirubin, Total 0.4 mg/dL (0.2-1.0); CO2 28.9 mmol/L (21.0-32.0); Calcium 9.4 mg/dL (8.5-10.1); Chloride 100 mmol/L (98-107); Glucose 86 mg/dL (74-106); Sodium 139 mmol/L (136-145); TSH (W/Ref FT4) 2.88 uIU/mL (0.36-3.74); Total Protein 8.5 g/dL (6.4-8.2); Uric Acid 6.5 mg/dL (2.6-6.0)
[2020-06-18 21:59] LABS: ESR 21 mm/hr (<or=20)
[2020-06-18 22:13] LABS: Rheumatoid Factor <8.6 IU/mL (<12.0)
[2020-06-19 10:39] LABS: Lyme Ab w Rflx to Lyme Confirm Positive (Negative)
[2020-06-20] LABS: Anaplasma phagocytophilum Negative (Negative); B. miyamotoi PCR Negative (Negative); Babesia divergens/MO-1 Negative (Negative); Babesia duncani Negative (Negative); Babesia microti Negative (Negative); Ehrlichia chaffeensis Negative (Negative); Ehrlichia ewingii/canis Negative (Negative); Ehrlichia muris eauclairensis Negative (Negative)
[2020-06-25 14:16] LABS: IgG Band(s) p93; IgG Immunoblot Positive (Negative); IgM Band(s) p41; IgM Immunoblot Positive (Negative)
== END 2020-06-18 04:20 | disposition home or self-care (01) ==
PROVIDERS: PCP Nurse Practitioner Adult Health; Visit Provider Nurse Practitioner Adult Health
DX: M25.461 Effusion, right knee (principal); M25.59 Pain in other specified joint; I10 Essential (primary) hypertension
CPT/HCPCS: 36415; 80053; 85027; 85652; 86617; 87798; 84443; 84550; 86431; 86618

== ENCOUNTER 2020-06-23 09:21 | Outpatient (CLI) | payer MEDICAID, SELFPAY ==
--- NOTE | 2020-06-23 09:15 | RT.EKG_ITS ---
APPROVED REPORT Exam: Resting ECG Patient Location: O HR:70 bpm ECG Measurements Heart Rate 70 AXIS AZ 148 P 14 QRSd 102 QRS 76 QT 423 T 33 QTc 457 Conclusion Sinus rhythm...normal P axis, V-rate 60- 99
== END 2020-06-23 09:22 | disposition home or self-care (01) ==
LOC: DI.KIM 09:22
PROVIDERS: PCP Nurse Practitioner Adult Health; Visit Provider Nurse Practitioner Adult Health
DX: A69.23 Arthritis due to Lyme disease (principal); I10 Essential (primary) hypertension
CPT/HCPCS: 93010

== ENCOUNTER 2020-08-20 16:34 | Outpatient (REF) | payer MEDICAID, SELFPAY ==
[2020-08-20 19:11] LABS: HCT 41.9 % (36.0-46.0); HGB 14.7 g/dL (11.2-15.7); MCH 33.3 pg (27.0-33.0); MCHC 35.1 % (32.0-36.0); MPV 9.9 fL (8.0-11.0); Platelet Count 328 10^3/uL (130-400); RBC 4.41 10^6/uL (3.93-5.22); RDW-SD 42.1 fL; WBC 9.02 10^3/uL (4.4-10.8)
[2020-08-20 19:13] LABS: ESR 7 mm//hr (0-20)
== END 2020-08-20 16:35 | disposition home or self-care (01) ==
LOC: LBN 16:34
PROVIDERS: PCP Nurse Practitioner Adult Health; Visit Provider Nurse Practitioner Adult Health
DX: R70.0 Elevated erythrocyte sedimentation rate (principal); A69.23 Arthritis due to Lyme disease
CPT/HCPCS: 85027; 85652

== ENCOUNTER 2020-09-25 14:33 | Outpatient (CLI) | payer MEDICAID, SELFPAY ==
--- NOTE | 2020-09-25 13:30 | DI.RAD_ITS ---
Exam(s) XR KNEE RT 3V AP,LAT,CONCEPCIÓN EXAM: XR KNEE RT 3V AP,LAT,CONCEPCIÓN CLINICAL HISTORY: R knee pain. TECHNIQUE: 2D digital imaging was performed. COMPARISON: No exams were available for comparison FINDINGS: Patellar enthesophytes are noted. The joint spaces are well maintained. No joint effusion is visibl e. There is minimal periarticular spurring. There is a small osteochondroma of the proximal fibula. A faint area of sclerosis is seen in the posterolateral aspect of the proximal tibial metaphysis, c onsistent with a fibrous cortical defect. IMPRESSION: Mild degenerative changes.. DATA REPOSITORY: RADIATION DOSE DELIVERED:
== END 2020-09-25 14:34 | disposition home or self-care (01) ==
LOC: DIORS 14:33
PROVIDERS: PCP Nurse Practitioner Adult Health; Referring Provider Nurse Practitioner Adult Health; Visit Provider Physician Assistant
DX: M25.561 Pain in right knee (principal); M17.11 Unilateral primary osteoarthritis, right knee
CPT/HCPCS: 73562

== ENCOUNTER 2021-06-23 04:15 | Outpatient (CLI) | payer MEDICAID, SELFPAY | END 2021-06-23 04:16 | disposition home or self-care (01) | LOC: LBO 04:15 | PROVIDERS: PCP Nurse Practitioner Adult Health; Visit Provider Nurse Practitioner Adult Health ==

== ENCOUNTER 2022-01-06 02:57 | Outpatient (CLI) | payer MEDICAID, SELFPAY ==
[2022-01-06 07:22] LABS: Abs Immature Grans 0.03 10^3/uL (0.0-0.06); Absolute Basophil Count 0.08 10^3/uL (0.0-0.2); Absolute Eosinophil Count 0.68 10^3/uL (0.0-0.7); Absolute Neutrophil Count 3.56 10^3/uL (1.2-6.7); Eosinophils % 8.8; HCT 41.4 % (36.0-46.0); HGB 14.3 g/dL (11.2-15.7); Immature Grans % 0.4; Lymphocytes % 36.1; MCH 33.3 pg (27.0-33.0); MCHC 34.5 % (32.0-36.0); MCV 96 fL (80-95); MPV 9.8 fL (8.0-11.0); Monocytes % 7.7; Platelet Count 317 10^3/uL (130-400); RDW 11.9 % (11.7-14.6); RDW-SD 41.4 fL; WBC 7.75 10^3/uL (4.4-10.8)
[2022-01-06 08:27] LABS: Anion Gap 9.2 mmol/L (3-11); BUN 16 mg/dL (7-18); CO2 28.8 mmol/L (21.0-32.0); Calcium 9.2 mg/dL (8.5-10.1); Calculated LDL 105 mg/dL (<100); Chloride 100 mmol/L (98-107); Cholesterol 213 mg/dL (<200); Estimated GFR 72.58 (mL/min/1.73m2); Glucose 85 mg/dL (74-106); HDL Cholesterol 46 mg/dL (40-60); Potassium 4.2 mmol/L (3.5-5.1); Sodium 138 mmol/L (136-145); TSH (W/Ref FT4) 2.05 uIU/mL (0.36-3.74); Triglyceride 311 mg/dL (<150)
[2022-01-07 05:44] LABS: Vitamin D 25 Total 19.4 ng/mL (30-100)
[2022-01-07 10:00] LABS: HIV-1/2 Ag & Ab Screen Negative (Negative); Hepatitis C Ab w Rflx HCV PCR Negative (Negative)
== END 2022-01-06 02:58 | disposition home or self-care (01) ==
LOC: LBO 02:57
PROVIDERS: PCP Nurse Practitioner Adult Health; Referring Provider Nurse Practitioner Adult Health; Visit Provider Nurse Practitioner Adult Health
DX: I10 Essential (primary) hypertension (principal); R63.4 Abnormal weight loss; Z11.3 Encounter for screening for infections with a predominantly sexual mode of transmission; Z11.4 Encounter for screening for human immunodeficiency virus [HIV]; Z11.59 Encounter for screening for other viral diseases; Z79.899 Other long term (current) drug therapy; Z82.69 Family history of other diseases of the musculoskeletal system and connective tissue
CPT/HCPCS: 36415; 80048; 80061; 82306; 86803; 87389; 84443; 85025

== ENCOUNTER 2025-02-27 15:20 | Outpatient (REF) | payer MEDICAID, SELFPAY | END 2025-02-27 15:21 | disposition home or self-care (01) | LOC: LBN 15:20 | PROVIDERS: PCP Nurse Practitioner Adult Health; Visit Provider Obstetrics & Gynecology | DX: Z12.4 Encounter for screening for malignant neoplasm of cervix (principal) | CPT/HCPCS: 88142; 87624 ==